=== PATIENT | female | born 1930 | race Caucasian/White ===

== ENCOUNTER 2016-10-07 13:48 | Emergency (ER) | payer MEDICARE, BC ==
--- NOTE | 2016-10-07 14:43 | RAD ---
Indication: Left ankle pain after fall 3 views of left ankle demonstrates no fracture. Soft tissue swelling is noted laterally. No other fractures are noted. IMPRESSION: Soft tissue swelling without fracture.
--- NOTE | 2016-10-07 14:54 | ED ---
Lower Extremity - HPI Summary HPI Summary: 86 female presents with complaints of left ankle swelling and bruising that occurred after a fall yesterday evening 10/06/16. Patient states she was in the hallway without her walker when her ankle twisted and she fell on her bottom. Patient denies hitting her head and LOC. Denies any other injuries or pain. Admits to some pain however is not currently in any pain. She took a tylenol last night and also took an oxycotton that she takes for other purposes with relief. She is able to bear weight and walk with minimal pain. She has full ROM. Denies numbness/tingling, chest pain and difficulty breathing. Points to the most discomfort on the lateral malleolous. - History of Current Complaint Chief Complaint: EDExtremityLower Stated Complaint: FALL / LT ANKLE INJURY Time Seen by Provider: 10/07/16 14:26 Hx Obtained From: Patient Mechanism Of Injury: Fall From A Standing Position, Twisted Onset of Pain: Hours Onset/Duration: Worse Since Severity Initially: Mild Severity Currently: Mild Pain Intensity: 5 Pain Scale Used: 0-10 Numeric Timing: Constant, Intermittent - with movement worsening pain Location: Is Discrete @ - left lateral ankle Character Of Pain: Aching Associated Signs And Symptoms: Positive: Swelling, Bruising. Negative: Knee Pain Aggravating Factor(s): Movement Alleviating Factor(s): Rest, Elevation, Ice Able to Bear Weight: Yes - Allergies/Home Medications Allergies/Adverse Reactions: Allergies Allergy/AdvReac Type Severity Reaction Status Date / Time No Known Drug Allergy Allergy Unknown Unknown Verified 03/17/16 18:07 Reaction Details PMH/Surg Hx/FS Hx/Imm Hx Endocrine/Hematology History: Reports: Hx Thyroid Disease - PARATHYROID SURGERY ABOUT 15 YRS AGO, Other Endocrine/Hematological Disorders - parathyroid surgery 15 years ago Denies: Hx Anticoagulant Therapy, Hx Diabetes Cardiovascular History: Reports: Hx Hypertension - ON MEDICATION FOR Denies: Hx Congestive Heart Failure, Hx Pacemaker/ICD Respiratory History: Reports: Hx Chronic Obstructive Pulmonary Disease (COPD), Hx Pneumonia, Other Respiratory Problems/Disorders - 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 Sensory History: Reports: Hx Cataracts, Hx Glaucoma - BILATERAL Denies: Hx Contacts or Glasses, Hx Eye Injury, Hx Eye Prosthesis, Hx Vision Problem, Hx Deafness, Hx Hearing Aid, Hx Hearing Problem Opthamlomology History: Reports: Hx Cataracts, Hx Glaucoma - BILATERAL Denies: Hx Contacts or Glasses, Hx Eye Injury, Hx Eye Prosthesis, Hx Vision Problem Neurological History: Reports: Other Neuro Impairments/Disorders - Childhood: POLIO, migraines Denies: Hx Dementia, Hx Developmental Delay, Hx Headaches, Hx Migraine, Hx Seizures, Hx Spinal Cord Injury, Hx Transient Ischemic Attacks (TIA) Psychiatric History: Reports: Hx Anxiety - ON MEDICATION FOR, Hx Depression - ON MEDICATION FOR Denies: Hx Substance Abuse - Cancer History Cancer Type, Location and Year: polio, osteoporosis Hx Chemotherapy: No Hx Radiation Therapy: No - Surgical History Surgery Procedure, Year, and Place: PARATHYROID- 21 YEARS. BREAST SURGERY- DIFFICULTY BREATHING- PLACED ON A VENTILATOR FOR A SHORT PERIOD- [facility]- 15 YEARS AGO. "kidney stone blasting-[facility] [place] Hx Anesthesia Reactions: Yes - PROBLEMS WITH BREATHING DURING SURGERY- 15 YEARS AGO Infectious Disease History: No Infectious Disease History: Reports: Hx Shingles Denies: Hx Clostridium Difficile, Hx Hepatitis, Hx Human Immunodeficiency Virus (HIV), Traveled Outside the in Last 30 Days - Family History Known Family History: Positive: Cardiac Disease, Hypertension - Social History Alcohol Use: Occasionally Alcohol Amount: glass of wine with dinner Substance Use Type: Reports: None Smoking Status (MU): Former Smoker Amount Used/How Often: 1 1/2 PPD X 20 YEARS Review of Systems Constitutional: Negative Cardiovascular: Negative Respiratory: Negative Gastrointestinal: Negative Positive: Arthralgia, Myalgia, Edema - left ankle Positive: Bruising Neurological: Negative Psychological: Normal All Other Systems Reviewed And Are Negative: Yes Physical Exam Triage Information Reviewed: Yes Vital Signs On Initial Exam: Initial Vitals Temp Pulse Resp BP Pulse Ox 97.1 F 94 18 134/60 96 10/07/16 13:52 10/07/16 13:52 10/07/16 13:52 10/07/16 13:52 10/07/16 13:52 Vital Signs Reviewed: Yes Appearance: Positive: Well-Appearing, No Pain Distress, Well-Nourished Skin: Positive: Warm, Skin Color Reflects Adequate Perfusion - < 2 second cap refill, Dry Head/Face: Positive: Normal Head/Face Inspection Eyes: Positive: Normal, EOMI, CHELITA, Conjunctiva Clear ENT: Positive: Normal ENT inspection, Hearing grossly normal Neck: Positive: Supple, Nontender Respiratory/Lung Sounds: Positive: Clear to Auscultation, Breath Sounds Present Cardiovascular: Positive: Normal, RRR, Pulses are Symmetrical in both Upper and Lower Extremities - 2+ Abdomen Description: Positive: Nontender, No Organomegaly Bowel Sounds: Positive: Present Musculoskeletal: Positive: Normal, Strength/ROM Intact - full ROM with minimal pain, Pain @ - minimal pain on palpation of lateral malleolous, ATFL. swelling and ecchymosis noted. no crepitus or step off noted., Edema Left - ankle, Other - negative valenzuela test, achilles tendon intact.. Negative: Limited @, Interruption @, Jarod Sign Left, Jarod Sign Right Neurological: Positive: Normal, Sensory/Motor Intact, Alert, Oriented to Person Place, Time, CN Intact II-III, Reflexes Intact, NV Bundle Intact Distally, Normal Gait - for patient's norm, with some favoring of right leg. uses walker, Speech Normal Psychiatric: Positive: Normal - [place] Coma Scale Best Eye Response: 4 - Spontaneous Best Motor Response: 6 - Obeys Commands Best Verbal Response: 5 - Oriented Coma Scale Total: 15 Diagnostics - Vital Signs Vital Signs Temp Pulse Resp BP Pulse Ox 10/07/16 13:52 97.1 F 94 18 134/60 96 - Laboratory Lab Statement: Any lab studies that have been ordered have been reviewed, and results considered in the medical decision making process. - Radiology left ankle Xray Interpretation: No Acute Changes - Soft tissue swelling without fracture. Radiology Interpretation Completed By: Radiologist Lower Extremity Course/Dx - Course Course Of Treatment: patient was not in any pain during vist and denied pain management at this time. x-ray obtained and negative. appeared to be sprained. wrapped with jennifer bandage, ice applied. patient will continue brace, REST and Aleve OTC. Informed that if symptoms worsen or are not improving to have an x- ray retaken when swelling decreases. Follow up with PCP or her Ortho pt Dr Vera - Diagnoses Differential Diagnosis/HQI/PQRI: Positive: Contusion, Dislocation, Fracture ( Closed), Sprain, Strain Provider Diagnoses: Sprain of left ankle Discharge - Discharge Plan Condition: Stable Disposition: HOME Patient Education Materials: Ankle Sprain (ED) Referrals: Og Powell MD [Primary Care Provider] - Additional Instructions: Take some OTC Aleve to help with pain and inflammation. 1-2 pills every 8 hours as needed. Be sure to keep resting your ankle, elevate it and ice it 20 minutes on and 20 minutes off to help with swelling. Keep jennifer bandage brace on for extra support. Try to refrain from walking on it as much as possible and use your walker while doing so. If your pain gets worse, swelling or are unable to bear weight/walk on it please return and get an additional x-ray in the next couple of days. Sometimes it takes a fracture a couple of days to show up, if symptoms are worsening rather than getting better like we discussed. Follow up with your primary care provider to ensure proper healing of your ankle sprain.
[2016-10-07 15:54] VITALS: BP 133/56
== END 2016-10-07 15:54 | disposition home or self-care (01) ==
LOC: ED 13:48
DX: S93.402A Sprain of unspecified ligament of left ankle, initial encounter (principal); Z87.891 Personal history of nicotine dependence; I10 Essential (primary) hypertension; J44.9 Chronic obstructive pulmonary disease, unspecified; F41.9 Anxiety disorder, unspecified; F32.9 Major depressive disorder, single episode, unspecified; X50.1XXA Overexertion from prolonged static or awkward postures, initial encounter; Y92.9 Unspecified place or not applicable; W19.XXXA Unspecified fall, initial encounter
CPT/HCPCS: 99281

== ENCOUNTER 2016-10-11 16:07 | Emergency (ER) | payer MEDICARE, BC ==
--- NOTE | 2016-10-11 17:05 | UC ---
Lower Extremity/Ankle HPI - HPI Summary HPI Summary: Pt presents with continued left ankle pain. Pt reports that she fell on and went to [facility] ED for left ankle pain. Pt had left ankle xray and impression was negative for fracture. Pt's c/o mild edema lateral malleolous.swelling, tenderness and ecchymosis. - History of Current Complaint Chief Complaint: UCLowerExtremity Stated Complaint: ANKLE INJURY Time Seen by Provider: 10/11/16 16:51 Hx Obtained From: Patient ?: No Onset/Duration: Sudden Onset, Lasting Days Severity Initially: Moderate Severity Currently: Mild Aggravating Factor(s): Standing, Ambulation - pt uses a walker for ambulation Alleviating Factor(s): Rest, Elevation Able to Bear Weight: Yes - Risk Factors Gout Risk Factors: Age Over 40 DVT Risk Factors: Recent Trauma - fall on October 06 Septic Arthritis Risk Factor: Extremes of Age - Allergies/Home Medications Allergies/Adverse Reactions: Allergies Allergy/AdvReac Type Severity Reaction Status Date / Time No Known Drug Allergy Allergy Unknown Unknown Verified 03/17/16 18:07 Reaction Details Home Medications: Home Medications Naproxen Sodium 220 mg PO 10/11/16 [History] PMH/Surg Hx/FS Hx/Imm Hx Previously Healthy: No - see PMH Endocrine History Of: Reports: Thyroid Disease - PARATHYROID SURGERY ABOUT 15 YRS AGO Denies: Diabetes Cardiovascular History Of: Reports: Hypertension - ON MEDICATION FOR Denies: Cardiac Disorders, Pacemaker/ICD, Congestive Heart Failure Respiratory History Of: Reports: COPD, Pneumonia Denies: Asthma GI/ History Of: Reports: Kidney Stones - HX BOTH SIDES AND CURRENT RT SIDE, Renal Disease - kidney stones Denies: Gastroesophageal Reflux Neurological History Of: Denies: TIA, CVA, Dementia, Seizures, Migraine Psychological History Of: Reports: Anxiety - ON MEDICATION FOR, Depression - ON MEDICATION FOR Cancer History Of: Denies: Breast Cancer Other History Of: Negative For: Anticoagulant Therapy - Surgical History Surgical History: Yes Surgery Procedure, Year, and Place: PARATHYROID- 20 YEARS. BREAST SURGERY- DIFFICULTY BREATHING- PLACED ON A VENTILATOR FOR A SHORT PERIOD- [facility]- 15 YEARS AGO. "kidney stone blasting-[facility] - Family History Known Family History: Positive: Cardiac Disease, Hypertension - Social History Alcohol Use: Occasionally Alcohol Amount: glass of wine with dinner Substance Use Type: None Smoking Status (MU): Former Smoker Amount Used/How Often: 1 1/2 PPD X 20 YEARS When Did the Patient Quit Smoking/Using Tobacco: 20 YEARS AGO - Immunization History Most Recent Influenza Vaccination: Fall 2013 Most Recent Tetanus Shot: unknown Most Recent Pneumonia Vaccination: unknown Review of Systems Constitutional: Negative Skin: Bruising - left ankle Eyes: Negative ENT: Negative Respiratory: Negative Cardiovascular: Negative Gastrointestinal: Negative Genitourinary: Negative Motor: Decreased ROM - left ankle Neurovascular: Negative Musculoskeletal: Arthralgia, Edema - left ankle generalized,, Myalgia Neurological: Negative Psychological: Negative All Other Systems Reviewed And Are Negative: Yes Physical Exam Triage Information Reviewed: Yes Appearance: Well-Appearing Vital Signs: Initial Vital Signs Temp 98.7 F 10/11/16 16:45 Pulse 87 10/11/16 16:45 Resp 18 10/11/16 16:45 Pulse Ox 95 10/11/16 16:45 Vital Signs Reviewed: Yes Eye Exam: Normal Respiratory: Positive: No respiratory distress Musculoskeletal Exam: Other Musculoskeletal: Positive: ROM Limited @ - left ankle secondary to tenderness, Edema @ - left ankle generalized, ecchymosis left nery generalized Neurological Exam: Normal Psychological Exam: Normal Skin Exam: Other - eccyhmosis left ankle generalized Lower Extremity Course/Dx - Course Course Of Treatment: Xray impression: IMPRESSION: Soft tissue swelling is improved. Increased sclerosis at the talar dome is. noted which is unchanged. The talar dome is intact however the possibility of avascular. necrosis should be considered. - Differential Dx/Diagnosis Differential Diagnosis/HQI/PQRI: Fracture (Closed), Sprain, Strain Provider Diagnoses: left ankle sprain. I discussed the findings of her xray and instructed the pt to follow up with an orthopedic provider. Pt verbalized understanding but denied referral. Discharge - Discharge Plan Condition: Stable Disposition: HOME Patient Education Materials: Ankle Sprain (ED) Referrals: Rigo Quintana MD [Medical Doctor] - Og Powell MD [Primary Care Provider] - If Needed Additional Instructions: Please follow up with our PCP or return to clinic as needed. I have provided a referral to an orthopedic provider for you to follow up with regard to todays xray findings. IMPRESSION: Soft tissue swelling is improved. Increased sclerosis at the talar dome is noted which is unchanged. The talar dome is intact however the possibility of avascular necrosis should be considered.
--- NOTE | 2016-10-11 17:34 | RAD ---
Indication: Left ankle pain. 3 views of left ankle demonstrate soft tissue swelling. No fracture is identified. Diffuse osteopenia is noted. When compared to previous exam of October 07, 2016 soft tissue swelling appears to be improved slightly. There is increased sclerosis at the talar dome. Avascular necrosis of the talus is not excluded. IMPRESSION: Soft tissue swelling is improved. Increased sclerosis at the talar dome is noted which is unchanged. The talar dome is intact however the possibility of avascular necrosis should be considered.
== END 2016-10-11 17:50 | disposition home or self-care (01) ==
LOC: UCEAST 16:07
DX: S93.402A Sprain of unspecified ligament of left ankle, initial encounter (principal); W19.XXXA Unspecified fall, initial encounter; Y93.9 Activity, unspecified; Y92.9 Unspecified place or not applicable; I10 Essential (primary) hypertension; Z87.891 Personal history of nicotine dependence
CPT/HCPCS: 99212; G0463

== ENCOUNTER 2016-10-14 10:36 | Emergency (ER) | payer MEDICARE, BC ==
--- NOTE | 2016-10-14 12:18 | RAD ---
HISTORY: Left leg pain and bruising COMPARISONS: None VIEWS: 2, Frontal and lateral views of the left foreleg FINDINGS: BONE DENSITY: There is diffuse osteopenia. BONES: There is no displaced fracture. JOINTS: There is osteoarthritis of the knee and ankle ALIGNMENT: There is no dislocation. SOFT TISSUES: Unremarkable. OTHER FINDINGS: None. IMPRESSION: NO ACUTE OSSEOUS INJURY. THE DEGREE OF OSTEOPENIA MAY MAKE A NONDISPLACED FRACTURE RADIOGRAPHICALLY OCCULT. IF SYMPTOMS PERSIST, RECOMMEND REPEAT IMAGING.
[2016-10-14 13:12] VITALS: BP 182/85
--- NOTE | 2016-10-14 13:31 | UC ---
Lower Extremity/Ankle HPI - HPI Summary HPI Summary: LEFT ANKLE TWISTED ON 10/07/16 XRAY AT EMERGENCY DEPT SHOWED NO ANKLE FRACTURE. ANKLE AND FOOT CONTINUED TO BOTHER PATIENT, SEEN AT URGENT CARE, XRAY SHOWED NO FRACTURE BUT COMMENTED ON POSSIBILITY OF AVASCULAR NECROSIS OF TALAR DOME. PEDRO PABLO COMES TODAY DUE TO BRUISING OF LEFT LOWER LEG. (HAS BEEN RESTING WITH FEET UP FOR EXTEDED PERIOD OF TIME RECENTLY) . LOWER LEG NONTENDER. - History of Current Complaint Chief Complaint: UCLowerExtremity Stated Complaint: LEG BLACK AND BLUE Time Seen by Provider: 10/14/16 11:42 Hx Obtained From: Patient, Family/[employer] Worker Onset/Duration: Gradual Onset, Lasting Weeks, Still Present, Worse Since - LAST 3 DAYS, LATERAL LEG ECCYMOSES Severity Currently: Mild Aggravating Factor(s): Standing, Ambulation Alleviating Factor(s): Rest Able to Bear Weight: Yes - Risk Factors Septic Arthritis Risk Factor: Negative - Allergies/Home Medications Allergies/Adverse Reactions: Allergies Allergy/AdvReac Type Severity Reaction Status Date / Time No Known Drug Allergy Allergy Unknown Unknown Verified 10/14/16 11:35 Reaction Details PMH/Surg Hx/FS Hx/Imm Hx Previously Healthy: Yes Endocrine History Of: Reports: Thyroid Disease - PARATHYROID SURGERY ABOUT 15 YRS AGO Denies: Diabetes Cardiovascular History Of: Reports: Hypertension - ON MEDICATION FOR Denies: Cardiac Disorders, Pacemaker/ICD, Congestive Heart Failure Respiratory History Of: Reports: COPD, Pneumonia Denies: Asthma GI/ History Of: Reports: Kidney Stones - HX BOTH SIDES AND CURRENT RT SIDE, Renal Disease - kidney stones Denies: Gastroesophageal Reflux Neurological History Of: Denies: TIA, CVA, Dementia, Seizures, Migraine Psychological History Of: Reports: Anxiety - ON MEDICATION FOR, Depression - ON MEDICATION FOR Cancer History Of: Denies: Breast Cancer Other History Of: Negative For: Anticoagulant Therapy - Surgical History Surgical History: Yes Surgery Procedure, Year, and Place: PARATHYROID- 20 YEARS. BREAST SURGERY- DIFFICULTY BREATHING- PLACED ON A VENTILATOR FOR A SHORT PERIOD- [facility]- 15 YEARS AGO. "kidney stone blasting-[facility] - Family History Known Family History: Positive: Cardiac Disease, Hypertension - Social History Occupation: Retired Lives: With Family Alcohol Use: Occasionally Alcohol Amount: glass of wine with dinner Substance Use Type: None Smoking Status (MU): Former Smoker Amount Used/How Often: 1 1/2 PPD X 20 YEARS When Did the Patient Quit Smoking/Using Tobacco: 20 YEARS AGO - Immunization History Most Recent Influenza Vaccination: Fall 2013 Most Recent Tetanus Shot: unknown Most Recent Pneumonia Vaccination: unknown Review of Systems Constitutional: Negative Skin: Bruising - LEFT LOWER LEG ANKLE AND FOOT Eyes: Negative ENT: Negative Respiratory: Negative Cardiovascular: Negative Gastrointestinal: Negative Genitourinary: Negative Musculoskeletal: Arthralgia, Myalgia Neurological: Negative Psychological: Negative All Other Systems Reviewed And Are Negative: Yes Physical Exam Triage Information Reviewed: Yes Appearance: Well-Appearing, No Pain Distress, Well-Nourished, Thin Vital Signs: Initial Vital Signs Temp 98.8 F 10/14/16 11:30 Pulse 90 10/14/16 11:30 Resp 18 10/14/16 11:30 BP 196/93 10/14/16 11:30 Pulse Ox 98 10/14/16 11:30 Vital Signs Reviewed: Yes Eye Exam: Normal ENT Exam: Normal ENT: Positive: Normal ENT inspection, Hearing grossly normal, TMs normal Dental Exam: Normal Neck exam: Normal Neck: Positive: Supple, Nontender Respiratory Exam: Normal Respiratory: Positive: Chest non-tender, Lungs clear, Normal breath sounds, No respiratory distress, No accessory muscle use Cardiovascular Exam: Normal Cardiovascular: Positive: RRR, No Murmur Abdominal Exam: Normal Musculoskeletal Exam: Normal Musculoskeletal: Positive: Strength Limited @, ROM Limited @ Neurological Exam: Normal Neurological: Positive: Alert Psychological Exam: Normal Psychological: Positive: Normal Response To Family Skin: Positive: Other - ECCYMOSES LEFT LOWER LEG NONTENDER TO PALPATION Lower Extremity Course/Dx - Differential Dx/Diagnosis Differential Diagnosis/HQI/PQRI: Contusion, Fracture (Closed), Sprain, Strain Provider Diagnoses: LEFT LOWER LEG OSTEOPENIA/OSTEOPEROSIS;. LEFT ANKLE SPRAIN; . POSSIBLE OCCULT FRACTURE/POSSIBLE TALAR DOME AVASCULAR NECROSIS - Physician Notifications Instructed by Provider To: Have Pt Call For Appt. Discharge - Discharge Plan Condition: Stable Disposition: HOME Patient Education Materials: Ankle Sprain (ED), Osteoarthritis (ED), Hypertension (ED), SUSPECTED FRACTURE (ED), Osteopenia (GEN) Referrals: Lm Miguel MD [Medical Doctor] - Og Powell MD [Primary Care Provider] -
== END 2016-10-14 13:15 | disposition home or self-care (01) ==
LOC: UCEAST 10:36
DX: M81.0 Age-related osteoporosis without current pathological fracture (principal); S93.402A Sprain of unspecified ligament of left ankle, initial encounter; X58.XXXA Exposure to other specified factors, initial encounter; Y93.9 Activity, unspecified; Y99.9 Unspecified external cause status
CPT/HCPCS: 99213; G0463

== ENCOUNTER 2018-05-01 21:02 | Emergency (ER) | payer MEDICARE, OTHER ==
--- OUTSIDE RECORDS SUMMARY | 2018-05-01 21:09 | XMS REPORT | Continuity of Care Document ---
:1930 External Reference #:[id number] Author Name Raymond Cyr M.D. Address [address] [place] [address] Care Team Providers Name Role Phone Og Powell M.D. 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 Active Onset: 01/20/2015 Primary open angle glaucoma Raymond Cyr M.D. Active Onset: 01/20/2015 Moderate Glaucoma Raymond Cyr M.D. Active Onset: 02/12/2015 Blepharitis Merlyn Carmen, Active O.D. Onset: 02/12/2015 Severe / Advanced / End Stage Merlyn Carmen, Active Glaucoma O.D. Onset: 2015 Pseudophakia Raymond Cyr M.D. Active Onset: 10/07/2015 Internal hordeolum Fide Murry O.D. Active Onset: 10/07/2015 Senile ectropion Fide Murry O.D. Active Onset: 11/11/2015 Allergic contact dermatitis due to Merlyn Carmen, Active other agents O.D. Onset: 12/14/2015 Angular blepharoconjunctivitis Merlyn Carmen Active O.DZachary Onset: 11/08/2016 Bilateral primary open angle glaucoma Raymond Cyr M.D. Active Onset: 08/07/2017 Eczematous dermatitis of eyelid Raymond Cyr M.D. Active Onset: 01/08/2018 Tear film insufficiency Eric Blancas OOrtiz Family History Date Family Member(s) Problem(s) Comments General No Current Problems Father No Current Problems Mother No Current Problems Social History Type Date Description Comments Sex Unknown Marital Status Single Occupation [employer] - Retired ETOH Use Consumes 1-2 glasses of wine per day Tobacco Use Start: Unknown End: Patient is a former smoker Unknown Recreational Drug Use Denies Drug Use Smoking Status Reviewed: 04/16/18 Patient is a former smoker Allergies, Adverse Reactions, Alerts Date Description Reaction Status Severity Comments 10/13/2014 Travatan Z Active 10/13/2014 Beta Adrenergic Blockers Active 02/12/2015 Alphagan P Active 02/12/2015 Azopt Active Medications Medication Date Status Form Strength Qnty SIG Indications Ordering Provider Erythromycin 04/11/ Active Ointment 5mg/GM 1Tube apply H10.523 Merlyn Faulkner 2018 thin Kermit, strip to O.D. all four eyelid margins x every night Artificial 02/09/ Active Solution 1-0.3% 4 times Merlyn Faulkner Tears 2018 daily Sariah Carmen Brimonidine 09/19/ Active Solution 0.2% 10unit Instill Raymond Faulkner Tartrate 2018 s One Drop Arleo, In Both M.D. Eyes Two Times A Day Preservision 10/12/ Active Capsules Areds 2 1 cap by Raymond Faulkner Arejeanne 2 2014 mouth Arleo, twice a M.D. day Potassium 00// Active Tablets ER 10Meq daily Unknown Citrate ER 0000 (1080 mg) Lorazepam / Active Tablets 0.5mg daily Unknown 0000 Oxycontin 00/ Active Tab ER 12H 10mg as Unknown 0000 Abuse-Det needed Bupropion HCL / Active Tablets ER 150mg daily Unknown ER (XL) 0000 24HR Prolia / Active Solution 60mg/ml daily Unknown 0000 Norvasc 0000/ Active Tablets 10mg 1 tab po Unknown 0000 daily Multi For Her 00/ Active Tablets daily Unknown 50+ 0000 Aleve / Active Tablets 220mg as Unknown 0000 needed Warm Compresses / Active twice Unknown 0000 daily Erythromycin 02/23/ Hx Ointment 5mg/GM 1Tube apply H10.523 Merlyn Faulkner 2018 - geovani Carmen, 04/11/ strip to O.D. 2018 all four eyelid margins x every night Neomycin/Polymy 02/09/ Hx Ointment 3.5-62848- 3.500g apply to H10.523 Merlyn britton/Dexamethaso 2018 - 0.1 m all lids eKrmit ne 04/11/ at O.D. 2018 bedtime for 2 weeks Erythromycin 10/21/ Hx Ointment 5mg/GM 1Tubes apply H10.523 Fide Banerjee 2018 - geovani Murry, 12/27/ strip to O.D. 2018 all four eyelid margins twice a day both eyes for 1 week, then once a day as needed Tobrex 10/09/ Hx Ointment 0.3% 3.500g apply to H01.131 Raymond Faulkner 2018 - m all lids Arleo, 10/18/ at M.D. 2018 bedtime for 1 week then stop, as needed. Tobradex 08/14/ Hx Ointment 0.3-0.1% 3.500g apply to Raymond Faulkner 2018 - m all lids Arleo, 10/18/ at M.D. 2018 bedtime for 1 week Erythromycin 04/14/ Hx Ointment 5mg/GM 1Tube apply H10.523 Merlyn Faulkner 2017 - geovani Carmen, 06/05/ strip to O.D. 2016 all four eyelid margins every night Refresh P.M. 01/20/ Hx Ointment 3.500g every Fide Banerjee 2016 - m night at Jeanmarie, 04/13/ bedtime O.D. 2017 both eyes Brimonidine 12/12/ Hx Solution 0.2% 10unit instill Raymond Faulkner Tarcamron 2016 - s 1 drop Arleo, 08/07/ in both M.D. 2018 eyes twice daily Tobradex 11/10/ Hx Ointment 0.3-0.1% 3.500g apply to L23.89 Merlyn Faulkner 2016 - m all lids Stockwin, 12/12/ 1xday O.D. 2016 for 5 days, then stop. Erythromycin 10/06/ Hx Ointment 5mg/GM 1Tube apply to H01.001 Fide Banerjee 2016 - all four [place], 11/18/ lids at O.D. 2016 bedtime for 3 weeks Ocusoft Lid 09/26/ Hx Pads twice a Raymond Faulkner Scrub Plus 2016 - day Arleo, 11/09/ M.D. 2016 Erythromycin 09/07/ Hx Ointment 5mg/GM 1Tube Apply to H01.001 Fide Banerjee 2016 - all four [place], 09/27/ lids at O.D. 2016 bedtime for 3 weeks Brimonidine 07/30/ Hx Solution 0.2% 45ml 1 drop H40.11x3 Raymond Tate 2016 - both Arleo, 11/18/ eyes M.D. 2015 twice a day Erythromycin 02/12/ Hx Ointment 5mg/GM 1Tube apply 373.00 Merlyn Faulkner 2014 - thin Stockwin, 04/27/ strip to O.D. 2014 all four eyelid margins x every night Vigamox 10/13/ Hx Solution 0.5% 3ml one drop Raymond Faulkner 2014 - right Arleo, 01/19/ eye M.D. 2014 three times a day , start the day before surgery Alphagan P 10/12/ Hx Solution 0.1% 10ml One drop Raymond Faulkner 2014 - Both Arleo, 01/26/ eyes M.D. 2014 twice daily Azopt 10/12/ Hx Suspension 1% 15ml One drop Raymond Faulkner 2014 - Both Arleo, 02/05/ eyes M.D. 2014 twice daily Sensipar 00/ Hx Tablets 30mg Unknown 0000 - 2014 Advair Diskus / Hx Aerosol 250-50mcg/ Unknown 0000 - Dose 2014 Spiriva / Hx Capsules 18mcg Unknown Handihaler 0000 - 2014 Albuterol / Hx Nebulizer (2.5mg/3ML Unknown Sulfate 0000 - ) 0.083% 2014 Prednisone / Hx Tablets 10mg Unknown 0000 - 2016 Tylenol Extra / Hx Tablets 500mg 2 by Unknown Strength 0000 - mouth as 2016 Acetaminophen / Hx Tablets 500mg Unknown 0000 - 2016 Warm Compresses / Hx as Unknown 0000 - needed 2017 Ocusoft Lid Hx Liquid as Raymond Faulkner Scrcatrachito Original 0000 - needed Ger 10/18/ Sofia 2017 Medications Administered in Office Medication Date Status Form Strength Qnty SIG Indications Ordering Provider Avastin Administered Injection Raymond Cyr M.D. Avastin Administered Injection Raymond Cyr M.D. Avastin Administered Injection Raymond Cyr M.D. Avastin Administered Injection Raymond Cyr M.D. Avastin Administered Injection Raymond Cyr M.D. Avastin Administered Injection Raymond Cyr M.D. Avastin Administered Injection Raymond Cyr M.D. Avastin Administered Injection Raymond Cyr M.D. Avastin Administered Injection Raymond Cyr M.D. Avastin Administered Injection Raymond Cyr M.D. Avastin Administered Injection Raymond Cyr M.D. Immunizations Description No Information Available Vital Signs Date Vital Result Comment 04/12/2018 12:17pm BP Systolic 174 mmHg BP Diastolic 83 mmHg Heart Rate 81 /min 11/09/2015 2:34pm BP Systolic 121 mmHg BP Diastolic 63 mmHg Heart Rate 92 /min Respiratory Rate 16 /min 09/28/2015 1:02pm BP Systolic 110 mmHg BP Diastolic 64 mmHg Heart Rate 92 /min Respiratory Rate 16 /min Results Description No Information Available Procedures Date Code Description Status 04/12/2018 98586 Scanning Computerized Opthalmic Diagnostic Posterior Seg Completed Retina 04/12/2018 40642 Est Patient Comprehensive Exam Completed 02/09/2018 07551 Est Patient Intermediate Exam Completed 01/08/2018 62541 Scanning Computerized Opthalmic Diagnostic Posterior Seg Completed Retina 01/08/2018 25540 Est Patient Comprehensive Exam Completed 10/09/2017 66710 Est Patient Intermediate Exam Completed 06/12/2017 03512 Est Patient Intermediate Exam Completed 02/06/2017 65958 Est Patient Intermediate Exam Completed 11/08/2016 19571 Est Patient Comprehensive Exam Completed 11/08/2016 28917 Visual Field Exam Extended Completed 11/08/2016 73896 Scanning Computerized Ophthalmic Diagnostic Imag Posterior Completed Seg On 06/24/2016 93579 Est Patient Intermediate Exam Completed 12/14/2015 11610 Est Patient Intermediate Exam Completed 11/20/2015 59241 Scanning Computerized Opthalmic Diagnostic Posterior Seg Completed Retina 11/20/2015 25779 Est Patient Comprehensive Exam Completed 11/09/2015 23181 Injection Intravitreal Of A Pharmacologic Agent Completed 09/28/2015 33453 Injection Intravitreal Of A Pharmacologic Agent Completed 08/10/2015 58484 Injection Intravitreal Of A Pharmacologic Agent Completed 07/30/2015 87084 Est Patient Comprehensive Exam Completed 07/30/2015 44696 Visual Field Exam Extended Completed 07/30/2015 91752 Scanning Computerized Ophthalmic Diagnostic Imag Posterior Completed Seg On 04/28/2015 20644 Scanning Computerized Opthalmic Diagnostic Posterior Seg Completed Retina 04/28/2015 41011 Est Patient Intermediate Exam Completed 2015 70246 Est Patient Intermediate Exam Completed 02/12/2015 60070 Est Patient Intermediate Exam Completed 02/02/2015 80666 Remove Secondary Cataract, Laser (Yag) Completed 01/20/2015 05809 Scanning Computerized Opthalmic Diagnostic Posterior Seg Completed Retina 01/20/2015 73575 Est Patient Comprehensive Exam Completed 01/12/2015 85503 Injection Intravitreal Of A Pharmacologic Agent Completed 12/08/2014 81888 Injection Intravitreal Of A Pharmacologic Agent Completed 11/03/2014 53031 Injection Intravitreal Of A Pharmacologic Agent Completed 10/13/2014 13729 Scanning Computerized Opthalmic Diagnostic Posterior Seg Completed Retina 10/13/2014 22236 Est Patient Intermediate Exam Completed 08/15/2014 81015 Scanning Computerized Opthalmic Diagnostic Posterior Seg Completed Retina 08/15/2014 15349 Est Patient Intermediate Exam Completed 08/04/2014 73196 Injection Intravitreal Of A Pharmacologic Agent Completed 08/01/2014 88131 Scanning Computerized Opthalmic Diagnostic Posterior Seg Completed Retina 08/01/2014 04309 Est Patient Comprehensive Exam Completed 05/05/2014 61722 Visual Field Exam Extended Completed 05/05/2014 49812 Injection Intravitreal Of A Pharmacologic Agent Completed 03/14/2014 85398 Est Patient Comprehensive Exam Completed 03/14/2014 84422 Scanning Computerized Opthalmic Diagnostic Posterior Seg Completed Retina 03/03/2014 26257 Injection Intravitreal Of A Pharmacologic Agent Completed 02/03/2014 00131 Injection Intravitreal Of A Pharmacologic Agent Completed 01/13/2014 87497 Injection Intravitreal Of A Pharmacologic Agent Completed 12/24/2013 67148 Scanning Computerized Opthalmic Diagnostic Posterior Seg Completed Retina 12/24/2013 72721 Determination Of Refractive State Completed 12/24/2013 61311 Est Patient Comprehensive Exam Completed 06/25/2013 63966 Est Patient Intermediate Exam Completed 05/14/2013 66797 Trabeculoplasty By Laser Surgery Completed 04/26/2013 62226 Est Patient Intermediate Exam Completed 04/26/2013 29715 Visual Field Exam Extended Completed 04/26/2013 76700 Scanning Computerized Ophthalmic Diagnostic Imag Posterior Completed Seg On 01/31/2013 15126 Est Patient Comprehensive Exam Completed 10/18/2012 89937 Est Patient Intermediate Exam Completed 07/10/2012 37212 Est Patient Intermediate Exam Completed 07/10/2012 516 Cod Liver Oil Tablets Completed 06/19/2012 91865 Remove Secondary Cataract, Laser (Yag) Completed 06/18/2012 49055 Est Patient Intermediate Exam Completed 05/28/2012 74878 Est Patient Intermediate Exam Completed 05/28/2012 516 Cod Liver Oil Tablets Completed 05/11/2012 16845 Visual Field Exam Extended Completed 09/30/2011 83581 Est Patient Intermediate Exam Completed 09/15/2011 72686 Trabeculoplasty By Laser Surgery Completed 09/08/2011 51492 Trabeculoplasty By Laser Surgery Completed 07/11/2011 58132 Visual Field Exam Extended Completed 07/11/2011 35819 Determination Of Refractive State Completed 07/11/2011 21372 Est Patient Comprehensive Exam Completed 03/21/2011 20308 Est Patient Intermediate Exam Completed 01/11/2011 02945 Scanning Computerized Ophthalmic Diagnostic Imag Posterior Completed Seg On 01/11/2011 78435 Est Patient Intermediate Exam Completed 08/27/2010 67236 Pachymetry Completed 08/27/2010 30750 Est Patient Intermediate Exam Completed 08/27/2010 10498 Visual Field Exam Extended Completed 08/27/2010 93367 Fundus Photography With Interpretation And Report Completed 02/10/2010 46468 Extracapsular Cataract Extraction W/Intraocular Lens Completed 02/03/2010 04254 Extracapsular Cataract Extraction W/Intraocular Lens Completed 01/14/2010 44774 Ophthalmic Biometry Completed 01/14/2010 75975 Ophthalmic Biometry Completed 01/14/2010 20407 Scanning Laser W/Interp And Report Completed 12/29/2009 92894 New Patient Comprehensive Exam Completed Encounters Type Date Location Provider Dx Diagnosis Office Visit 02/23/2018 Merlyn Williamson H10.523 Angular 10:30a , jeffrey Carmen O.D. blepharoconjunctiv itis, bilateral Office Visit 10/21/2017 Fide Williamson, H10.523 Angular 9:45a jeffrey GUSTAFSON O.D. blepharoconjunctiv itis, bilateral Office Visit 08/07/2017 Raymond Williamson, H01.131 Eczematous 12:45p jeffrey GUSTAFSON M.D. dermatitis of right upper eyelid H01.134 Eczematous dermatitis of left upper eyelid Office 04/14/2017 Raymond Faulkner H10.523 Angular Visit 11:10a MD Cyr Stockwin blepharoconjunctivitis, jeffrey Rolle bilateral Office 01/22/2016 Raymond Banerjee H35.32 Exudative age-related Visit 11:00a MD Cyr Conroy, O.D. macular degeneration pc H40.11x3 Primary open-angle glaucoma, severe stage H10.523 Angular blepharoconjunctivitis, bilateral Office Visit 11/11/2015 1:20p Raymond Faulkner L23.89 Allergic contact MD Ger, jeffrey Carmen O.D. dermatitis due to other agents Office Visit 10/07/2015 10:15a Raymond Murry, H01.001 Unspecified MD Ger, jeffrey O.DZachary blepharitis right upper eyelid H01.004 Unspecified blepharitis left upper eyelid H00.021 Hordeolum internum right upper eyelid H00.024 Hordeolum internum left upper eyelid H02.132 Senile ectropion of right lower eyelid Office Visit 09/07/2015 2:45p Raymond Banerjee H01.001 Unspecified MD Ger, Sariah Murry blepharitis right upper eyelid H01.004 Unspecified blepharitis left upper eyelid H35.32 Exudative age-related macular degeneration H40.11x3 Primary open-angle glaucoma, severe stage Office Visit 04/08/2013 10:00a Al Williamson, 365.12 Low Tension jeffrey GUSTAFSON M.D. Glaucoma 365.72 Moderate Glaucoma Office Visit 11/28/2011 11:00a Raymond Williamson 365.11 Primary Open jeffrey GUSTAFSON M.D. Angle Glaucoma 365.73 Severe / Advanced / End Stage Glaucoma Office Visit 10/17/2011 10:00a Raymond Williamson 365.11 Primary Open jeffrey GUSTAFSON M.D. Angle Glaucoma 365.73 Severe / Advanced / End Stage Glaucoma Office 05/02/2011 Raymond Faulkner 372.30 Conjunctivitis Unspec Visit 11:30a MD Ger, Sariah Carmen pc Office 04/15/2011 Raymond Faulkner 372.20 Blepharoconjunctivitis Visit 11:10a MD Cyr Stockwin, O.D. Unspec pc Office 10/11/2010 Raymond Faulkner 365.11 Primary Open Angle Glaucoma Visit 11:15a MD Cyr Arleo, M.D. pc Office 01/14/2010 Raymond Faulkner 366.16 Senile Nuclear Sclerosis / Visit 9:15a MD Cyr Arleo, M.D. Cataract Plan of Treatment 04/16/2018 - Raymond Cyr M.D.H40.1133 Primary open-angle glaucoma, bilateral, severe stageComments:Smoking can increase the risk of developing or worsening any eye related disease, as well as affect your overall health. If you are a smoker, we strongly recommend that you quit.If you are not a smoker, we strongly recommend that you do not start. Your glaucoma is stable at this time.Your eye pressure is within an acceptable range, and your testing does not show any further deterioration at this time. Please continue your treatment.Follow up:3 Month Follow Up IOP Check At your next visit, we are not planning to dilate your eyes. However, if you have any changes in your vision or new symptoms, there are certain situations that require us to dilate your eyes. If Dr. Cyr requests any additional testing, that may require extra time. If you have any questions before your next appointment, please call our office at .H35.3212 Exudative age-related macular degeneration, right eye, withComments:Dr. Cyr would like to refer you for a second opinion to a Retinal Specialist in [place]. The name of the group is [facility]. Shadi or Yanet will arrange your appointment with their office and will fax any necessary information to them. They will provide you withthe name of the doctor you are seeing, appointment time, and directions. If you have any questions feel free to call our office at .Follow up:Refer to S for second [id number] Nonexudative age- related macular degeneration, left eye, earH10.523 Angular blepharoconjunctivitis, bilateral
--- OUTSIDE RECORDS SUMMARY | 2018-05-01 21:09 | XMS REPORT | Continuity of Care Document ---
:1930 External Reference #:[id number] Author Name Merlyn Carmen O.D. Address [address] [facility] [place] [address] Care Team Providers Name Role Phone Og Powell M.D. Primary Care Physician Unavailable Payers Type Date Identification Numbers Payment Provider Subscriber Effective: Policy Number: [id number] Medicare - NGS Ashli Vaca 1995 Onset: 2010 PayID: [id number] [address] [place] [address] Policy Number: [id number] [employer] Ashli Vaca PayID: [id number] [address] [place] [address] Advance Directives Description No Information Available Problems [...] Raymond Cyr M.D. Active Onset: 02/12/2015 Blepharitis Eric Blancas.You Onset: 02/12/2015 Severe / Advanced / End Stage Eric Blancas Glaucoma O.DZachary Onset: 2015 Pseudophakia Raymond Cyr M.D. Active Onset: 10/07/2015 Internal hordeolum Fide Murry O.D. Active Onset: 10/07/2015 Senile ectropion Fide Murry O.D. Active Onset: 11/11/2015 Allergic contact dermatitis due to Merlyn Carmen, Active other agents O.D. Onset: 12/14/2015 Angular blepharoconjunctivitis Merlyn Carmen Active O.DZachary Onset: 11/08/2016 Bilateral primary open angle glaucoma Raymond Cyr M.D. Active Onset: 08/07/2017 Eczematous dermatitis of eyelid Raymnod Cyr M.D. Active Onset: 01/08/2018 Tear film insufficiency Eric Blancas OOrtiz Family History Date Family Member(s) Problem(s) Comments General No Current Problems Father No Current Problems Mother No Current Problems Social History Type Date Description Comments Sex Unknown Marital Status Single Occupation [employer] - Retired ETOH Use Consumes 1-2 glasses of wine per day Tobacco Use Start: Unknown End: Patient is a former smoker Unknown Recreational Drug Use Denies Drug Use Smoking Status Reviewed: 04/12/18 Patient is a former smoker Allergies, Adverse [...] x every night Neomycin/Polymy 02/09/ Hx Ointment [id number]- 3.500g apply to H10.523 Merlyn britton/Dexamethaso 2018 - 0.1 m all lids Kermit ne 04/11/ at O.D. 2018 bedtime for [...] Fide Banerjee 2016 - m night at [place], 04/13/ bedtime O.D. 2017 both eyes Brimonidine [...] H01.001 Fide Banerjee 2016 - all four [place], 11/18/ lids at O.D. 2016 bedtime for 3 weeks Ocusoft Lid 09/26/ Hx Pads twice a Raymond Faulkner Scrub Plus 2016 - day Ar[place], 11/09/ M.D. 2016 Erythromycin 09/07/ Hx Ointment 5mg/GM 1Tube Apply to H01.001 Fide Banerjee 2016 - all four [place], 09/27/ lids at O.D. 2016 bedtime for [...] Information Available Procedures Date Code Description Status 02/09/2018 53008 Est Patient Intermediate Exam Completed 01/08/2018 08571 Scanning Computerized Opthalmic Diagnostic Posterior Seg Completed Retina 01/08/2018 67298 Est Patient Comprehensive Exam Completed 10/09/2017 23461 Est Patient Intermediate Exam Completed 06/12/2017 41440 Est Patient Intermediate Exam Completed 02/06/2017 71842 Est Patient Intermediate Exam Completed 11/08/2016 53714 Scanning Computerized Ophthalmic Diagnostic Imag Posterior Completed Seg On 11/08/2016 02773 Visual Field Exam Extended Completed 11/08/2016 66857 Est Patient Comprehensive Exam Completed 06/24/2016 09334 Est Patient Intermediate Exam Completed 12/14/2015 66414 Est Patient Intermediate Exam Completed 11/20/2015 10007 Scanning Computerized Opthalmic Diagnostic Posterior Seg Completed Retina 11/20/2015 50130 Est Patient Comprehensive Exam Completed 11/09/2015 45642 Injection Intravitreal Of A Pharmacologic Agent Completed 09/28/2015 48670 Injection Intravitreal Of A Pharmacologic Agent Completed 08/10/2015 85391 Injection Intravitreal Of A Pharmacologic Agent Completed 07/30/2015 09421 Scanning Computerized Ophthalmic Diagnostic Imag Posterior Completed Seg On 07/30/2015 05954 Visual Field Exam Extended Completed 07/30/2015 35396 Est Patient Comprehensive Exam Completed 04/28/2015 33042 Est Patient Intermediate Exam Completed 04/28/2015 72512 Scanning Computerized Opthalmic Diagnostic Posterior Seg Completed Retina 2015 54724 Est Patient Intermediate Exam Completed 02/12/2015 16384 Est Patient Intermediate Exam Completed 02/02/2015 44445 Remove Secondary Cataract, Laser (Yag) Completed 01/20/2015 62270 Scanning Computerized Opthalmic Diagnostic Posterior Seg Completed Retina 01/20/2015 53287 Est Patient Comprehensive Exam Completed 01/12/2015 66091 Injection Intravitreal Of A Pharmacologic Agent Completed 12/08/2014 68954 Injection Intravitreal Of A Pharmacologic Agent Completed 11/03/2014 03678 Injection Intravitreal Of A Pharmacologic Agent Completed 10/13/2014 52852 Est Patient Intermediate Exam Completed 10/13/2014 47472 Scanning Computerized Opthalmic Diagnostic Posterior Seg Completed Retina 08/15/2014 05082 Scanning Computerized Opthalmic Diagnostic Posterior Seg Completed Retina 08/15/2014 11638 Est Patient Intermediate Exam Completed 08/04/2014 74196 Injection Intravitreal Of A Pharmacologic Agent Completed 08/01/2014 19744 Scanning Computerized Opthalmic Diagnostic Posterior Seg Completed Retina 08/01/2014 54050 Est Patient Comprehensive Exam Completed 05/05/2014 79280 Visual Field Exam Extended Completed 05/05/2014 12213 Injection Intravitreal Of A Pharmacologic Agent Completed 03/14/2014 59160 Est Patient Comprehensive Exam Completed 03/14/2014 09488 Scanning Computerized Opthalmic Diagnostic Posterior Seg Completed Retina 03/03/2014 38420 Injection Intravitreal Of A Pharmacologic Agent Completed 02/03/2014 58995 Injection Intravitreal Of A Pharmacologic Agent Completed 01/13/2014 93850 Injection Intravitreal Of A Pharmacologic Agent Completed 12/24/2013 30582 Scanning Computerized Opthalmic Diagnostic Posterior Seg Completed Retina 12/24/2013 67071 Determination Of Refractive State Completed 12/24/2013 95659 Est Patient Comprehensive Exam Completed 06/25/2013 32650 Est Patient Intermediate Exam Completed 05/14/2013 52298 Trabeculoplasty By Laser Surgery Completed 04/26/2013 30865 Est Patient Intermediate Exam Completed 04/26/2013 59854 Visual Field Exam Extended Completed 04/26/2013 48205 Scanning Computerized Ophthalmic Diagnostic Imag Posterior Completed Seg On 01/31/2013 64785 Est Patient Comprehensive Exam Completed 10/18/2012 00445 Est Patient Intermediate Exam Completed 07/10/2012 59832 Est Patient Intermediate Exam Completed 07/10/2012 516 Cod Liver Oil Tablets Completed 06/19/2012 56760 Remove Secondary Cataract, Laser (Yag) Completed 06/18/2012 54753 Est Patient Intermediate Exam Completed 05/28/2012 60023 Est Patient Intermediate Exam Completed 05/28/2012 516 Cod Liver Oil Tablets Completed 05/11/2012 81908 Visual Field Exam Extended Completed 09/30/2011 26060 Est Patient Intermediate Exam Completed 09/15/2011 75068 Trabeculoplasty By Laser Surgery Completed 09/08/2011 45663 Trabeculoplasty By Laser Surgery Completed 07/11/2011 29457 Visual Field Exam Extended Completed 07/11/2011 45015 Determination Of Refractive State Completed 07/11/2011 15744 Est Patient Comprehensive Exam Completed 03/21/2011 88171 Est Patient Intermediate Exam Completed 01/11/2011 98124 Scanning Computerized Ophthalmic Diagnostic Imag Posterior Completed Seg On 01/11/2011 11311 Est Patient Intermediate Exam Completed 08/27/2010 86298 Pachymetry Completed 08/27/2010 90644 Est Patient Intermediate Exam Completed 08/27/2010 97573 Visual Field Exam Extended Completed 08/27/2010 98879 Fundus Photography With Interpretation And Report Completed 02/10/2010 18919 Extracapsular Cataract Extraction W/Intraocular Lens Completed 02/03/2010 92733 Extracapsular Cataract Extraction W/Intraocular Lens Completed 01/14/2010 84250 Ophthalmic Biometry Completed 01/14/2010 84459 Ophthalmic Biometry Completed 01/14/2010 54657 Scanning Laser W/Interp And Report Completed 12/29/2009 03915 New Patient Comprehensive Exam Completed Encounters Type [...] Raymond Faulkner H10.523 Angular Visit 11:10a MD Ger, Kermit blepharoconjunctivitis, jeffrey Rolle bilateral Office 01/22/2016 Raymond Banerjee H35.32 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 dermatitis due to other agents Office Visit 10/07/2015 10:15a Raymond Murry, H01.001 Unspecified MD Ger, jeffrey Rolle blepharitis right upper eyelid H01.004 Unspecified blepharitis [...] Cyr Arleo, M.D. Cataract Plan of Treatment Future Appointment(s):04/16/2018 11:15 am - Raymond Cyr M.D. at Raymond Cyr MD, 04/12/2018 - Merlyn Carmen O.D.H35.032 Hypertensive retinopathy, left eyeFollow up:3 day recheck with RA as sched for CEE You can expect to have your eyes dilated at your next visit.If Dr. Carmen orders any additional testing, it may require extra time. We recommend that you bring sunglasses, as dilation drops often make you light sensitive until they wear off. We always recommend you bring someone to drive you home if you are uncomfortable driving with your eyes dilated. 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
[2018-05-01 21:17] VITALS: BP 155/72
--- NOTE | 2018-05-01 21:42 | ED ---
GI/ HPI - HPI Summary HPI Summary: patient with hx. 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 - History of Current Complaint Chief Complaint: UCGI Time Seen by Provider: 05/01/18 21:11 Stated Complaint: CONSTIPATION Onset/Duration: Still Present Timing: Intermittent Pain Intensity: 0 - Allergy/Home Medications Allergies/Adverse Reactions: Allergies Allergy/AdvReac Type Severity Reaction Status Date / Time No Known Drug Allergies Allergy Unknown Verified 05/01/18 21:17 Reaction Details Home Medications: Home Medications Acetaminophen [Acetaminophen Extra Strength] 500 mg PO DAILY 05/01/18 [History Confirmed 05/01/18] Erythromycin OPTH OINT* [Erythromycin 0.5% OPTH OINT*] 05/01/18 [History] Oxygen 2 Liters* BEDTIME 05/01/18 [History] PMH/Surg Hx/FS Hx/Imm Hx Previously Healthy: Yes Endocrine/Hematology History: Reports: Hx Thyroid Disease - PARATHYROID SURGERY ABOUT 15 YRS AGO, Other Endocrine/Hematological Disorders - parathyroid surgery 15 years ago Denies: Hx Anticoagulant Therapy, Hx Diabetes Cardiovascular History: Reports: Hx Hypertension Denies: Hx Congestive Heart Failure, Hx Pacemaker/ICD Respiratory History: Reports: Hx Chronic Obstructive Pulmonary Disease (COPD), Hx Pneumonia, Other Respiratory Problems/Disorders - 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 Sensory History: Reports: Hx Cataracts, Hx Glaucoma - BILATERAL Denies: Hx Contacts or Glasses, Hx Eye Injury, Hx Eye Prosthesis, Hx Vision Problem, Hx Deafness, Hx Hearing Aid, Hx Hearing Problem Opthamlomology History: Reports: Hx Cataracts, Hx Glaucoma - BILATERAL Denies: Hx Contacts or Glasses, Hx Eye Injury, Hx Eye Prosthesis, Hx Vision Problem Neurological History: Reports: Other Neuro Impairments/Disorders - Childhood: POLIO, migraines Denies: Hx Dementia, Hx Developmental Delay, Hx Headaches, Hx Migraine, Hx Seizures, Hx Spinal Cord Injury, Hx Transient Ischemic Attacks (TIA) Psychiatric History: Reports: Hx Anxiety - ON MEDICATION FOR, Hx Depression - ON MEDICATION FOR Denies: Hx Substance Abuse - Cancer History Cancer Type, Location and Year: polio, osteoporosis Hx Chemotherapy: No Hx Radiation Therapy: No - Surgical History Surgery Procedure, Year, and Place: PARATHYROID- 21 YEARS. BREAST SURGERY- DIFFICULTY BREATHING- PLACED ON A VENTILATOR FOR A SHORT PERIOD[place] [facility] [place] 15 [place]ARS [place]GO. "kidney stone blasting[place] [place]x Anesthesia Reactions: Yes - PROBLEMS WITH BREATHING DURING SURGERY- 15 YEARS AGO Infectious Disease History: No Infectious Disease History: Reports: Hx Shingles Denies: Hx Clostridium Difficile, Hx Hepatitis, Hx Human Immunodeficiency Virus (HIV), Traveled Outside the [place] in Last 30 Days - Family History Known Family History: Positive: Cardiac Disease, Hypertension - Social History Alcohol Use: Occasionally Alcohol Amount: glass of wine with dinner Substance Use Type: Reports: None Smoking Status (MU): Former Smoker Amount Used/How Often: 1 1/2 PPD X 20 YEARS Review of Systems Constitutional: Negative Eyes: Negative ENT: Negative Cardiovascular: Negative Respiratory: Negative Positive: Other - constipation Musculoskeletal: Negative Skin: Negative Neurological: Negative All Other Systems Reviewed And Are Negative: Yes Physical Exam Triage Information Reviewed: Yes Vital Signs On Initial Exam: Initial Vitals Temp Pulse Resp BP Pulse Ox 37.3 C 91 18 155/72 96 05/01/18 21:08 05/01/18 21:08 05/01/18 21:08 05/01/18 21:08 05/01/18 21:08 Vital Signs Reviewed: Yes Appearance: Positive: Well-Appearing Skin: Positive: Warm, Dry Head/Face: Positive: Normal Head/Face Inspection Eyes: Positive: Normal ENT: Positive: Normal ENT inspection Abdomen Description: Positive: Nontender Bowel Sounds: Positive: Present, Other - rectal exam without masses, some small skin tags, no evidence for fecal impaction Musculoskeletal: Positive: Normal Diagnostics - Vital Signs Vital Signs Temp Pulse Resp BP Pulse Ox 05/01/18 21:08 37.3 C 91 18 155/72 96 - Laboratory Lab Statement: Any lab studies that have been ordered have been reviewed, and results considered in the medical decision making process. GIGU Course/Dx - Diagnoses Provider Diagnoses: Chronic constipation, Chronic narcotic use Discharge - Sign-Out/Discharge Documenting (check all that apply): Patient Departure All imaging exams completed and their final reports reviewed: No Studies - Discharge Plan Condition: Good Disposition: HOME Prescriptions: Sennosides [Senna Laxative] 8.6 mg PO DAILY #30 tablet Patient Education Materials: Constipation (DC), Safe Use of Narcotics (ED) Referrals: Og Powell MD [Primary Care Provider] - - Billing Disposition and Condition Condition: GOOD Disposition: Home
[2018-05-01] MEDS ORDERED: Magnesium Hydroxide LIQ* 30 ML UDC PO ONE (21:51)
== END 2018-05-01 22:02 | disposition home or self-care (01) ==
LOC: UCEAST 21:02
DX: K59.09 Other constipation (principal); Z79.891 Long term (current) use of opiate analgesic; F32.9 Major depressive disorder, single episode, unspecified; F41.9 Anxiety disorder, unspecified; Z87.891 Personal history of nicotine dependence
CPT/HCPCS: 99212; G0463

== ENCOUNTER 2018-11-17 16:06 | Inpatient (IN) | payer MEDICARE, OTHER ==
--- NOTE | 2018-11-17 18:09 | ED ---
Complex/Multi-Sys Presentation - HPI Summary HPI Summary: 88 year old F presenting to [facility] from home accompanied by nephew Nickolas complains of right shoulder pain, right arm pain, right hip, right leg pain s/p standing, turning around faster than normal, falling on to right side this afternoon. The patient rates the pain 2/10 in severity. Symptoms aggravated by nothing. Symptoms alleviated by nothing. Patient denies hitting her head. Patient denies right knee pain. Patient has fallen before on right side which required rehab at [facility]. 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 Patient normally walks with walker but was not using her walker when she fell today. Patient wears knee brace on her right knee. Patient uses O2 at night. Vital signs while in room: HR 95 bpm, BP 159/104, O2 sat 91% Home Medications Medication Instructions Recorded Confirmed Type amLODIPine TAB* [Norvasc TAB*] 5 mg PO QAM 08/23/12 05/01/18 History Brimonidine P 0.1%(NF) [Alphagan P 2 drop BOTH EYES QPM 11/15/13 05/01/18 History 0.1% (NF)] Bupropion XL* [Wellbutrin XL (NF)] 150 mg PO DAILY 11/15/13 05/01/18 History LORazepam TAB(*) [Ativan TAB(*)] 0.5 mg PO DAILY 11/15/13 05/01/18 History Multivitamins/Mins (NF) AREDS2 1 cap PO BID 11/15/13 05/01/18 History [Preservision Areds 2] Potassium Citrate (NF) [Urocit-K 10 meq PO BID 11/15/13 05/01/18 History 10 (NF)] oxyCODONE SR TAB(*) [Oxycontin(*)] 10 mg PO DAILY 11/15/13 05/01/18 History Denosumab(NF) [Prolia(NF)] 60 mg SC SEE INSTRUCTIONS 03/17/16 05/01/18 History Naproxen Sodium 220 mg PO 10/11/16 History Acetaminophen [Acetaminophen Extra 500 mg PO DAILY 05/01/18 05/01/18 History Strength] Erythromycin OPTH OINT* 05/01/18 History [Erythromycin 0.5% OPTH OINT*] Oxygen 2 Liters* BEDTIME 05/01/18 History Sennosides [Senna Laxative] 8.6 mg PO DAILY #30 tablet 05/01/18 Rx - History Of Current Complaint Chief Complaint: EDFall Hx Obtained From: Patient Onset/Duration: Sudden Onset, Lasting Hours, Still Present Timing: Constant Severity Currently: Mild - 09/02 Location: Pain At: - right shoulder, right arm, right hip, right leg Aggravating Factor(s): Nothing Alleviating Factor(s): Nothing - Allergies/Home Medications Allergies/Adverse Reactions: Allergies Allergy/AdvReac Type Severity Reaction Status Date / Time No Known Drug Allergies Allergy Unknown Verified 11/17/18 16:11 Reaction Details PMH/Surg Hx/FS Hx/Imm Hx Previously Healthy: No Endocrine/Hematology History: Reports: Hx Thyroid Disease - PARATHYROID SURGERY ABOUT 15 YRS AGO, Other Endocrine/Hematological Disorders - parathyroid surgery 15 years ago Denies: Hx Anticoagulant Therapy, Hx Diabetes Cardiovascular History: Reports: Hx Hypertension Denies: Hx Congestive Heart Failure, Hx Pacemaker/ICD Respiratory History: Reports: Hx Chronic Obstructive Pulmonary Disease (COPD), Hx Pneumonia, Other Respiratory Problems/Disorders - 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 Sensory History: Reports: Hx Cataracts, Hx Glaucoma - BILATERAL Denies: Hx Contacts or Glasses, Hx Eye Injury, Hx Eye Prosthesis, Hx Vision Problem, Hx Deafness, Hx Hearing Aid, Hx Hearing Problem Opthamlomology History: Reports: Hx Cataracts, Hx Glaucoma - BILATERAL Denies: Hx Contacts or Glasses, Hx Eye Injury, Hx Eye Prosthesis, Hx Vision Problem Neurological History: Reports: Other Neuro Impairments/Disorders - Childhood: POLIO, migraines Denies: Hx Dementia, Hx Developmental Delay, Hx Headaches, Hx Migraine, Hx Seizures, Hx Spinal Cord Injury, Hx Transient Ischemic Attacks (TIA) Psychiatric History: Reports: Hx Anxiety - ON MEDICATION FOR, Hx Depression - ON MEDICATION FOR Denies: Hx Substance Abuse - Cancer History Cancer Type, Location and Year: polio, osteoporosis Hx Chemotherapy: No Hx Radiation Therapy: No - Surgical History Surgery Procedure, Year, and Place: PARATHYROID- 20 YEARS. BREAST SURGERY- DIFFICULTY BREATHING- PLACED ON A VENTILATOR FOR A SHORT PERIOD- [facility] [place]- 15 YEARS AGO. "kidney stone blasting-[facility] [place] Hx Anesthesia Reactions: Yes - PROBLEMS WITH BREATHING DURING SURGERY- 15 YEARS AGO Infectious Disease History: No Infectious Disease History: Reports: Hx Shingles Denies: Hx Clostridium Difficile, Hx Hepatitis, Hx Human Immunodeficiency Virus (HIV), Traveled Outside the [place] in Last 30 Days - Family History Known Family History: Positive: Cardiac Disease, Hypertension, Other - mother had osteoporosis - Social History Alcohol Use: Occasionally Alcohol Amount: glass of wine with dinner Hx Substance Use: No Substance Use Type: Reports: None Hx Tobacco Use: Yes Smoking Status (MU): Former Smoker Amount Used/How Often: 1 1/2 PPD X 20 YEARS Review of Systems Musculoskeletal: Negative - right knee pain Positive: Other - right shoulder pain, right arm pain, right hip, right leg pain Negative: Bruising All Other Systems Reviewed And Are Negative: Yes Physical Exam - Summary Physical Exam Summary: Appearance: Well-appearing, no pain distress, thin Skin: Warm, color reflects adequate perfusion, dry Head: Normal Head/Face inspection, atraumatic Eyes: Conjunctiva clear ENT: Normal inspection Neck: Supple, no nodes, no JVD Respiratory: Lungs clear, normal breath sounds, no respiratory distress Cardio: RRR, No murmur, pulses normal, brisk capillary refill Abdomen: Soft, nontender Bowel sounds: Present Musculoskeletal: Strength Intact/ROM intact, no calf tenderness, no edema, good pulses distally, patient has kyphosis, no foreshortening, no inversion or eversion, tender lateral greater trochanter, right shoulder without deformity, right shoulder FROM, right knee FROM with chronic arthritic deformity, right ankle is non-tender and has no deformity Psychological: Normal Neuro: Alert, muscle tone normal, no focal deficit Triage Information Reviewed: Yes Vital Signs On Initial Exam: Initial Vitals Temp Pulse Resp BP Pulse Ox 97.8 F 89 16 151/75 90 11/17/18 16:11 11/17/18 16:11 11/17/18 16:11 11/17/18 16:11 11/17/18 16:11 Vital Signs Reviewed: Yes Diagnostics - Vital Signs Vital Signs Temp Pulse Resp BP Pulse Ox 04/27/19 16:11 97.8 F 89 16 151/75 90 - Laboratory Result Diagrams: 11/17/18 19:55 11/17/18 19:55 Lab Statement: Any lab studies that have been ordered have been reviewed, and results considered in the medical decision making process. - Radiology Hip/Pelvis Radiology Interpretation Completed By: Radiologist Summary of Radiographic Findings: RIGHT FEMORAL NECK FRACTURE. ED physician has reviewed this report. R shoulder Radiology Interpretation Completed By: Radiologist Summary of Radiographic Findings: 1. OSTEOPENIA.2. OSTEOARTHRITIS.3. NO ACUTE OSSEOUS INJURY. THE DEGREE OF OSTEOPENIA MAY MAKE A NONDISPLACED FRACTURE RADIOGRAPHICALLY OCCULT. IF SYMPTOMS PERSIST, RECOMMEND REPEAT IMAGING. ED physician has reviewed this report. CXR Summary of Radiographic Findings: Elevated left darrell diaphragm, abnormal right lung tian, possible cardiac shadow shifted by hiatal hernia on left. Pending official report. - EKG 1941 Cardiac Rate: NL - 96 BPM EKG Rhythm: Sinus Rhythm ST Segment: Non-Specific Ectopy: None EKG Comparison: No Significant Change - Compared to 08/26/14 Summary of EKG Findings: Nml AV/IV CT, nml QTc, and nml axis. No acute changes Re-Evaluation - Re-Evaluation First Eval Re-Evaluation Time: 20:24 Comment: Patient is lying on stretcher with family. Patient's niece is at bedside. Complex Multi-Symp Course/Dx Course Of Treatment: Patient medications reviewed this visit. Nurses notes reviewed. Allergies noted. High blood pressure noted. Hip/pelvis x-ray shows RIGHT FEMORAL NECK FRACTURE. Shoulder x-ray shows 1. OSTEOPENIA. 2. OSTEOARTHRITIS. 3. NO ACUTE OSSEOUS INJURY. THE DEGREE OF OSTEOPENIA MAY MAKE A NONDISPLACED FRACTURE RADIOGRAPHICALLY OCCULT. Bloodwork was unremarkable. CXR shows elevated left darrell diaphragm, abnormal right lung tian, possible cardiac shadow shifted by hiatal hernia on left. Spoke with Dr. Mcduffie, orthopedics, who will consult tomorrow and have her get admitted to medicine Spoke with Dr. Buitrago, hospitalist, who agrees to admit patient. Patient will be admitted to Dr. Buitrago, hospitalist. She is agreeable to admission. - Diagnoses Provider Diagnoses: Fracture of femoral neck, right, Fall - Physician Notifications Discussed Care Of Patient With: Rodolfo Mcduffie Time Discussed With Above Provider: 18:57 Instructed by Provider To: Other - Dr. Mcduffie, orthopedics, will consult tomorrow and have her get admitted to medicine. Spoke with Dr. Buitrago, hospitalist, at 1917, who agrees to admit patient. Discharge - Sign-Out/Discharge Documenting (check all that apply): Patient Departure - Admit Patient Received Moderate/Deep Sedation with Procedure: No - Discharge Plan Disposition: ADMITTED TO [facility] Referrals: Og Powell MD [Primary Care Provider] - - Attestation Statements Document Initiated by Scribe: Yes Documenting Scribe: Shila Lepe Provider For Whom Scribe is Documenting (Include Credential): Alia Barr MD Scribe Attestation: Shila Verdugo, scribed for Alia Barr MD on 11/17/18 at [id number]. Status of Scribe Document: Ready
[2018-11-17 20:11] LABS: ABS Basophils 0 10^3/ul (0-0.2); ABS Eosinophils 0.2 10^3/ul (0-0.6); ABS Lymphocytes 1.6 10^3/ul (1.0-4.8); ABS Monocytes 0.8 10^3/ul (0-0.8); ABS Neutrophils 6.7 10^3/ul (1.5-7.7); ABS Nucleated RBC 0 10^3/ul; Eosinophil % 2.2 %; Hematocrit 36 % (33-41); Hemoglobin 11.8 g/dL (12.0-16.0); Lymphocyte % 17.6 %; Mean Corpuscular HGB Conc 33 g/dL (31-36); Mean Corpuscular Hemoglobin 31 pg (27-31); Mean Corpuscular Volume 94 fL (80-97); Mean Platelet Volume 9.2 fL (7.4-10.4); Nucleated Red Blood Cells % 0; Platelet Count 171 10^3/uL (150-450); Red Blood Count 3.86 10^6 /uL (3.70-4.87); Red Cell Distribution Width 14 % (10.5-15); White Blood Count 9.4 10^3/uL (3.5-10.8)
[2018-11-17 20:18] LABS: Activated Partial Thrombo Time 28.3 seconds (26.0-36.3)
[2018-11-17 20:29] LABS: Albumin 4.5 g/dL (3.2-5.2); Albumin/Globulin Ratio 2.1 (1-3); BUN/Creatinine Ratio 27.7 (8-20); Calcium 11.2 mg/dL (8.6-10.3); EGFR African American 37.2 (>60); EGFR Non-African American 30.7 (>60); Globulin 2.1 g/dL (2-4); Potassium 3.8 mmol/L (3.5-5.0); Total Bilirubin 0.6 mg/dL (0.2-1.0); Total Protein 6.6 g/dL (6.4-8.9)
[2018-11-17 20:56] LABS: TSH (Thyroid Stimulating Horm) 2.12 mcIU/mL (0.34-5.60)
[2018-11-17] MEDS ORDERED: NS 0.9% 1000 ML** 1,000 ML IV SCH (22:30)
[2018-11-17] MEDS ORDERED: Heparin VIAL(*) 5000 UNITS/ML VIAL (FIVE THOUSAND) SUBCUT SCH (23:00)
[2018-11-17] MEDS: LORazepam TAB(*) 0.5 MG PO SCH (23:22)
[2018-11-17] MEDS: oxyCODONE TAB* 5 MG TAB PO PRN (23:30)
[2018-11-18] MEDS: amLODIPine TAB* 5 MG PO SCH ×2 (00:20→12:04)
[2018-11-18] MEDS: Acetaminophen TAB* 325 MG PO SCH ×4 (00:22→16:56)
--- NOTE | 2018-11-18 00:30 | HP ---
HISTORY AND PHYSICAL: DATE OF ADMISSION: 11/17/17 CHIEF COMPLAINT: Right hip pain and fall. PRIMARY CARE PROVIDER: gO Powell MD PAYROLL PROFESSIONAL: The patient's niece, Melani Elliott. CODE STATUS: DNR/DNI. REASON FOR ADMISSION: Right femur fracture. HPI was obtained from the patient and review of medical chart. The patient is an adequate historian. HISTORY OF PRESENT ILLNESS: This is an 88-year-old female domiciled alone at [facility] with past medical history of anxiety, on benzodiazepines; chronic kidney disease stage 2 to 3; hypertension; osteoporosis; childhood history of polio; COPD, on p.r.n. oxygen 2 L; and severe osteoarthritis, on chronic opioid pain medication, who presented status post mechanical fall. The patient reports that she lost her footing when turning around quickly at [facility] and fell on her right hip and shoulder. She denied loss of consciousness or head trauma. She was A and O x4 throughout the entire event. She usually ambulates with a walker and is independent in her IADLs and ADLs other than driving at baseline. As soon as she fell, she had immediate pain in the right leg. She was able to stand and ambulate for a few steps, but her pain persisted and thus she asked the house to call the ambulance. EMERGENCY ROOM COURSE: In the ED, her blood pressure is 151/75, heart rate 89, satting 90% on 2 L, respiratory rate 16. A right hip radiograph was completed, which shows a right femoral neck fracture. A right shoulder radiograph was completed that showed osteopenia and arthritis without acute fracture and a chest x- ray was completed, which shows marked elevation of the left hemidiaphragm and severe kyphosis, but otherwise no acute cardiopulmonary disease. An EKG was done, which shows sinus tachycardia without any evidence of acute ischemia. The hospitalist team was called to evaluate the patient for admission and Surgery was made aware of the patient. PAST MEDICAL HISTORY: 1. Anxiety, on benzodiazepines 2. chronic kidney disease stage 2 to 3 3, hypertension; osteoporosis, followed by Dr. Stone 4. 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 COPD 6. Severe osteoarthritis, on chronic opioid pain medication. PAST SURGICAL HISTORY: None. FAMILY HISTORY: Noncontributory. ALLERGIES: No known drug allergies. MEDICATIONS: 1. Aleve 220 mg p.o. daily. 2. Brimonidine 2 drops in both eyes q.p.m. 3. Bupropion 150 mg p.o. daily. 4. Calcium 600 mg p.o. daily. 5. Denosumab 60 mg subcutaneous q.4 weeks. 6. Lorazepam 0.5 mg p.o. daily. 7. OxyContin 1 tab p.o. daily. 8. Potassium citrate 10 mEq p.o. daily. REVIEW OF SYSTEMS: Constitutional: Negative for fevers and chills, malaise. HEENT: Negative for vision changes, headaches, sore throat. Cardiovascular: Negative for chest pain, palpitations, orthopnea. Respiratory: Negative for cough. Positive for mild shortness of breath, not beyond baseline. GI: Negative for nausea, vomiting, diarrhea, abdominal pain. : Negative for dysuria, hematuria. Musculoskeletal: Positive for right hip pain. Otherwise no arthralgias or myalgias. Skin: Negative for rashes or lesions. Neurological: Negative for focal weakness or numbness. Psychiatric: Negative for delusions, anxiety, or depression. Endocrine: Negative for polyuria, polydipsia. Heme: Negative for bruising, bleeding, or lymphadenopathy. PHYSICAL EXAMINATION GENERAL APPEARANCE: The patient is a frail-appearing elderly woman, in no acute distress, pleasant, A and O x3, but quite anxious. VITAL SIGNS: Blood pressure is 174/70, heart rate 97, respiratory rate 21, oxygen saturation is 90% on 2 L. HEENT: Moist mucous membranes. Pupils are equal and reactive. Extraocular muscles are intact. Sclerae anicteric. NECK: Supple with no supraclavicular, cervical lymphadenopathy. RESPIRATORY: The patient is clear to auscultation bilaterally. She is severely kyphotic with chest wall deformity that is longstanding from her history of polio. Furthermore, dextrocardia is noted on exam and bowel sounds are noted in the left anterior lung field. CARDIAC: She has regular rate and rhythm with 2/6 systolic ejection murmur that radiates to carotids. GI: Belly is soft, nontender, nondistended, and scaphoid. SKIN: No evidence of rashes or lesions. MUSCULOSKELETAL: She moves all 4 limbs spontaneously. She has palpable pulses in bilateral lower extremities at dorsalis pedis. Feet are mildly clubbed with discrepancy and size, which is according to her baseline. Right lower extremity is externally rotated. Sensation is intact and the patient is able to move her toes. NEURO/PSYCH: Cranial nerves II through XII are intact. Sensation is intact bilaterally to lower extremities and upper extremities. Strength is intact, 5/ 5 in all upper extremities and lower extremities. DIAGNOSTIC STUDIES/LAB DATA: BMP was done, which shows sodium of 140, potassium 3.8, chloride 97, carbon dioxide 34, BUN 44, creatinine 1.59, glucose 87, calcium 11.2, lactic acid 0.9. LFTs: AST 23, ALT 24, alkaline phosphatase 47, albumin 4.5, and TSH 2.12. CBC was done, white blood cell count 9.4, hemoglobin 11.8, hematocrit 36, platelets 171. INR is 1. Imaging completed with a chest x-ray that shows elevated left hemidiaphragm and with both bowel and spleen and space of left lower ribcage and significant rotation as well as mild displacement of cardiac silhouette to right lung field , otherwise no active cardiopulmonary disease. Shoulder radiograph shows osteopenia and porosis without active fracture and hip and pelvis x-ray shows right femoral neck fracture and osteoporosis and osteopenia. EKG was done, which showed sinus tachycardia with no active signs of ischemia. Labs, imaging , and EKG were reviewed by myself. ASSESSMENT AND PLAN: This is an 88-year-old female domiciled alone at [facility], ambulates with a walker at baseline with past medical history of anxiety ; hypertension; osteoporosis; and severe osteoarthritis, on chronic opioid, who presented status post mechanical fall, found to have a right femoral neck fracture. 1. Right femoral neck fracture, ortho team is aware. She is currently on nonweightbearing status. Pain control with [id number] Tylenol and breakthrough pain for oxycodone. DVT prophylaxis: Per surgical team, she will receive 1 dose of subcutaneous heparin this evening and we will hold pending possible surgical plans for 11/18/18. 2. Chronic kidney disease. Her creatinine is close to baseline. We will continue gentle IV fluids at 100 cc/hour for a total of 1 L given n.p.o. status. 3. Anxiety. We will continue her home meds, Wellbutrin and low dose Ativan p.r.n. daily. 4. Chronic obstructive pulmonary disease, on p.r.n. oxygen and nebulizers are to be offered here. 5. Osteoporosis. We will hold denosumab. The patient has mild hypercalcemia, which is likely a result of this medication. 6. History of childhood polio. As above, the patient is on p.r.n. oxygen with no active issues. 7. FEN: She is n.p.o. after midnight. 8. Disposition: The patient is stable for admission to a short stay medical/ surgical floor. 9. Code status: The patient is DNR/DNI and MOLST form is completed. TIME SPENT: Forty minutes was spent on the planning of this admission with over half of that spent directly at the bedside with the patient, providing direct patient care. Plan of care is discussed with the patient and her healthcare proxy and they have no further questions. [id number]/CPS #: [id number] MTDAnne
[2018-11-18 00:58] LABS: Urine Appearance Cloudy; Urine Bilirubin Negative (Negative); Urine Blood Negative (Negative); Urine Color Yellow; Urine Glucose Negative (Negative); Urine Ketones Trace (Negative); Urine Nitrite Negative (Negative); Urine Protein Negative (Negative); Urine Specific Gravity 1.014 (1.010-1.030); Urine Urobilinogen Negative (Negative)
[2018-11-18 07:56] LABS: ABS Basophils 0 10^3/ul (0-0.2); ABS Eosinophils 0.2 10^3/ul (0-0.6); ABS Lymphocytes 0.8 10^3/ul (1.0-4.8); ABS Monocytes 0.6 10^3/ul (0-0.8); ABS Neutrophils 3.3 10^3/ul (1.5-7.7); ABS Nucleated RBC 0 10^3/ul; Eosinophil % 4.6 %; Hematocrit 34 % (33-41); Hemoglobin 11.4 g/dL (12.0-16.0); Lymphocyte % 16.2 %; Mean Corpuscular HGB Conc 33 g/dL (31-36); Mean Corpuscular Hemoglobin 31 pg (27-31); Mean Corpuscular Volume 94 fL (80-97); Mean Platelet Volume 9.1 fL (7.4-10.4); Nucleated Red Blood Cells % 0; Platelet Count 134 10^3/uL (150-450); Red Blood Count 3.65 10^6 /uL (3.70-4.87); Red Cell Distribution Width 15 % (10.5-15)
[2018-11-18 08:01] LABS: INR 1.05 (0.82-1.09)
[2018-11-18 08:17] LABS: EGFR African American 49.5 (>60); EGFR Non-African American 40.9 (>60); Potassium 3.5 mmol/L (3.5-5.0)
--- NOTE | 2018-11-18 11:50 | PN ---
Progress Note - Progress Note Date of Service: 11/18/18 SOAP: ORTHO CONSULT Subjective: [88 yo female who fell at her place of residence yesterday, 11/17/18. She lives at [facility]. She lost her footing while turning around and fell onto her right hip and shoulder. Denies LOC or head trauma. She was transported by ambulance to [facility]. Xrays of R hip show a valgus impacted femoral neck fracture. Patient was admitted and ortho was consulted. She usually ambulates with a walker and is independent in her ADLs Upon questioning, patient is reporting little to no pain.] Objective: [A and O x 3 NAD Appears to be resting comfortably in bed. Inspection R hip - no visible ecchymosis . RLE externally rotated. Skin intacat. DP pulse 2+ and equal bilaterally. Feet are mildly clubbed with discepancy in size which, according to her, is baseline. Sensation is intact throughout. Calves soft, NT. Able to wiggle toes.] Assessment: [R hip valgus impacted femoral neck fracture] Plan: [To OR tomorrow for ORIF R femoral neck, cannulated screws, with Dr. Mcduffie Bed rest NPO after midnight]
[2018-11-18] MEDS: LORazepam TAB(*) 0.5 MG PO SCH (12:04)
[2018-11-18] MEDS: BuPROPion XL* 150 MG TAB.XL PO SCH (12:05)
[2018-11-18] MEDS: PTO:Potassium Citrate (NF) 10 MEQ TAB PO SCH (12:06)
--- NOTE | 2018-11-18 12:15 | PN ---
Subjective Date of Service: 11/18/18 Interval History: pt reports she doesnt have any pain at rest but does have sharp pain in right hip with movements. she reports good appetite. reports mild cold last week with some a sore throat which has mostly resolved but does report she saw her PCP last week for the throat and she recommended to give it some time and if it doesn't resolve she would refer her to an ENt. Reports right arm shoulder pain reporting she has some pain when raising arm above head. has noted good ROm. no noted ecchymosis or open area Denies CP/ SOB. Wears O2 at nighttime only. long hx of COPD. Denies cough, sputum production. Objective Active Medications: Acetaminophen (Tylenol Tab*) 650 mg PO Q6H [facility] Last Admin: 11/18/18 12:05 Dose: 650 mg Albuterol/Ipratropium (Duoneb (Albuterol 2.5 Mg/Ipratropium 0.5 Mg)) 1 neb INH Q6H PRN PRN Reason: SOB/WHEEZING Amlodipine Besylate (Norvasc Tab*) 5 mg PO DAILY [facility] Last Admin: 11/18/18 12:04 Dose: 5 mg Brimonidine Tartrate (Alphagan P 0.1% (Nf)) 2 drop BOTH EYES QPM [facility] Bupropion HCl (Wellbutrin Xl *) 150 mg PO DAILY [facility] Last Admin: 11/18/18 12:05 Dose: 150 mg Lorazepam (Ativan Tab(*)) 0.5 mg PO DAILY [facility] Last Admin: 11/18/18 12:04 Dose: 0.5 mg Oxycodone HCl (Roxycodone Tab*) 5 mg PO Q6H PRN PRN Reason: HEADACHE/PAIN Last Admin: 11/17/18 23:30 Dose: 5 mg Potassium Citrate (Urocit-K 10 (Nf)) 10 meq PO DAILY [facility] Last Admin: 11/18/18 12:06 Dose: Not Given Vital Signs - 8 hr 11/18/18 11/18/18 11/18/18 07:41 08:00 12:04 Temperature 97.9 F Pulse Rate 79 Respiratory 16 18 16 Rate Blood Pressure 161/68 (mmHg) O2 Sat by Pulse 100 Oximetry Oxygen Devices in Use Now: None Appearance: thin elderly female laying in bed visiting with kaity in NAD, A+O x3 Eyes: No Scleral Icterus, PERRLA Ears/Nose/Mouth/Throat: NL Teeth, Lips, Gums, Mucous Membranes Moist Neck: NL Appearance and Movements; NL JVP Respiratory: Symmetrical Chest Expansion and Respiratory Effort, Clear to Auscultation, - - barrel chest Cardiovascular: NL Sounds; No Murmurs; No JVD, RRR, No Edema Abdominal: NL Sounds; No Tenderness; No Distention Extremities: No Edema, - - right LE shorter than left, no noted open areas or ecchymosis noted Neurological: Alert and Oriented x 3, NL Sensation, NL Muscle Strength and Tone Lines/Tubes/Other Access: Clean, Dry and Intact Peripheral IV Nutrition: Taking PO's Result Diagrams: 11/18/18 07:15 11/18/18 07:15 Microbiology and Other Data: Microbiology 11/18/18 00:32 Nasal Screen MRSA (PCR) - Final Nasal Mrsa Not Detected Assess/Plan/Problems-Billing Assessment: 88 yo female with a PMH of childhood polio, COPD on 2L QHS, severe osteoarthritis, HTN, CKD stage 2/3, anxiety on benzodiazepines, chronic pain on opioids who had a mechanical fall who suffered a right hip fracture - Patient Problems (1) Fracture of right hip Comment: - Right femoral neck fx - Appreciate ortho consult - RCRI score is 0 which places her at a 3.9% risk of cardiac complication. reviewed patient EKG on admission and EKG 2014 - no noted changes. There are no further cardiac work up recommendations for this patient; she is optimized to proceed with surgery. Last echo we have on record is from 2009 - showing mild plm HTN, EF 55%, no noted - pain control, bowel regimen - PT post op (2) Hypertension Comment: - hx of HTN, is currently not on medication. Blood pressures appear elevated SBP 160's - plan to start norvasc - will give one dose now and hold tomorrow due to surgery; will need to be re-evaluated. (3) COPD (chronic obstructive pulmonary disease) Comment: - does not appear to be in exacerbation. O2 prn - nebs prn (4) Chronic back pain Comment: - hold home dose oxycontin, continue oxycodone prn for hip fx (5) Depression Status: Chronic Comment: with anxiety continue wellbutrin and ativan (6) DNR (do not resuscitate) (7) DVT prophylaxis Comment: give 1 dose HSQ 5000 unit x 1 now then hold for surgery Status and Disposition: inpatient with hip fx. patient will likely require subacute rehab - she would like to go to [facility].
[2018-11-18] MEDS ORDERED: Magnesium Hydroxide LIQ* 30 ML UDC PO PRN (15:41)
[2018-11-18] MEDS ORDERED: amLODIPine TAB* 5 MG PO ONE (16:00)
[2018-11-18] MEDS ORDERED: Heparin VIAL(*) 5000 UNITS/ML VIAL (FIVE THOUSAND) SUBCUT ONE (16:00)
[2018-11-18] MEDS: Docusate CAP* 100 MG PO PRN (16:56)
[2018-11-18] MEDS: Brimonidine P 0.1%(NF) 1 DROP BTL BOTH EYES SCH (16:57)
[2018-11-18] MEDS ORDERED: Morphine ORAL CONCENTRATE* 5 MG/0.25 ML ORAL.SYRIN PO PRN (20:25)
[2018-11-18] MEDS: Albuterol/Ipratropium NEB.SOL* Albuterol 2.5 MG/Ipratropium 0.5 MG 3 ML INH PRN (20:39)
[2018-11-18] MEDS: Senna TAB PO SCH (23:29)
[2018-11-19] MEDS: Acetaminophen TAB* 325 MG PO SCH ×4 (00:35→22:06)
[2018-11-19 06:00] LABS: ABS Basophils 0 10^3/ul (0-0.2); ABS Eosinophils 0.3 10^3/ul (0-0.6); ABS Lymphocytes 0.8 10^3/ul (1.0-4.8); ABS Monocytes 0.6 10^3/ul (0-0.8); ABS Neutrophils 3.7 10^3/ul (1.5-7.7); ABS Nucleated RBC 0 10^3/ul; Eosinophil % 5.8 %; Hematocrit 32 % (33-41); Hemoglobin 10.7 g/dL (12.0-16.0); Lymphocyte % 14.1 %; Mean Corpuscular HGB Conc 34 g/dL (31-36); Mean Corpuscular Hemoglobin 32 pg (27-31); Mean Corpuscular Volume 94 fL (80-97); Mean Platelet Volume 8.9 fL (7.4-10.4); Nucleated Red Blood Cells % 0; Platelet Count 125 10^3/uL (150-450); Red Blood Count 3.39 10^6 /uL (3.70-4.87); Red Cell Distribution Width 14 % (10.5-15); White Blood Count 5.4 10^3/uL (3.5-10.8)
[2018-11-19 06:19] LABS: BUN/Creatinine Ratio 24.8 (8-20); Calcium 9.8 mg/dL (8.6-10.3); EGFR African American 50.9 (>60); EGFR Non-African American 42.1 (>60); Potassium 3.6 mmol/L (3.5-5.0)
[2018-11-19] MEDS: hydrALAZINE IV* 20 MG/ML VIAL IV SLOW PU PRN (09:23)
[2018-11-19] MEDS: LORazepam TAB(*) 0.5 MG PO PRN (09:24)
[2018-11-19] MEDS: LORazepam TAB(*) 0.5 MG PO SCH (10:26)
[2018-11-19] MEDS: PTO:Potassium Citrate (NF) 10 MEQ TAB PO SCH (10:27)
[2018-11-19] MEDS: Senna TAB PO SCH (10:27)
[2018-11-19] MEDS ORDERED: Lidocaine 2% PF * 5 ML VIAL ONE (13:15)
[2018-11-19] MEDS ORDERED: Bupivacaine 0.25% EPI 200,000* 30 ML SDV ONE (13:15)
[2018-11-19] MEDS ORDERED: Propofol* 10 MG/ML 20 ML BTL ONE (13:15)
[2018-11-19] MEDS ORDERED: Midazolam* 1 MG/ML 2 ML VIAL (2 MG) ONE (13:29)
[2018-11-19] MEDS ORDERED: KETAMINE HCL* 50 MG/ML 10 ML VIAL ONE (13:29)
[2018-11-19] MEDS ORDERED: ceFAZolin 2 GM PREMIX in ORs 2 GM/50 ML BAG IVPB ONE (13:38)
--- NOTE | 2018-11-19 13:48 | PN ---
Progress Note - Progress Note Date of Service: 11/19/18 Note: Full consult note dictated by GERMAN Liu. She is an 88 year old female with a valgus impacted femoral neck fracture. She ambulates with a walker and has some residual disability related to polio that affected her left leg. The plan will be for screw fixation of the right hip fracture. She understands that she may have screw cutout or hardware failure which would necessitate conversion to a hemiarthroplasty.
[2018-11-19] MEDS ORDERED: ceFAZolin 1 GM in Dextrose (*) 0 GM/0 ML BAG IVPB ONE (13:57)
[2018-11-19] MEDS ORDERED: Succinylcholine* 20 MG/ML 10 ML VIAL ONE (14:12)
[2018-11-19] MEDS ORDERED: Phenylephrine 10 MG/ML VIAL* 1 ML VIAL ONE (14:13)
[2018-11-19] MEDS ORDERED: fentaNYL* 50 MCG/ML 2 ML VIAL (100 MCG VIAL) ONE ×2 (14:26→14:27)
[2018-11-19] MEDS ORDERED: fentaNYL* 50 MCG/ML 2 ML VIAL (100 MCG VIAL) IV PRN (15:13)
[2018-11-19] MEDS ORDERED: Acetaminophen IV 1GM/100ML * 100 ML ONE (15:13)
[2018-11-19] MEDS ORDERED: Metoclopramide IV* 5 MG/ML 2 ML VIAL IV PRN (15:13)
[2018-11-19] MEDS ORDERED: Naloxone* 0.4 MG/ML 1 ML VIAL IV PRN (15:13)
[2018-11-19] MEDS ORDERED: Ketorolac INJ* 30 MG/ML 1 ML VIAL ONE (15:14)
[2018-11-19] MEDS ORDERED: Ondansetron INJ* 2 MG/ML VIAL ONE (15:46)
[2018-11-19] MEDS: BuPROPion XL* 150 MG TAB.XL PO SCH (17:12)
[2018-11-19] MEDS: Brimonidine P 0.1%(NF) 1 DROP BTL BOTH EYES SCH (17:13)
--- NOTE | 2018-11-19 18:28 | PN ---
Subjective Date of Service: 11/19/18 Interval History: VS: 97% on 3L NC; HTN trending down Labs: anemia, elevated Cr (trending down) Pt seen post-op, and states that she is in pain, but is unable to assign a number. She also states that she is hungry. She has niece and family friend at bedside. Niece states she is health care proxy; she states that they prefer [facility] for rehabilitation after discharge. Pt denies CP, SOB, abd pain, n/v/ d/c, pain in calves. Objective Active Medications: Acetaminophen (Tylenol Tab*) 650 mg PO Q6H ELLIOT Albuterol/Ipratropium (Duoneb (Albuterol 2.5 Mg/Ipratropium 0.5 Mg)) 1 neb INH Q6H PRN Brimonidine Tartrate (Alphagan P 0.1% (Nf)) 2 drop BOTH EYES QPM ELLIOT Bupropion HCl (Wellbutrin Xl *) 150 mg PO DAILY ELLIOT Docusate Sodium (Colace Cap*) 100 mg PO DAILY PRN Enoxaparin Sodium (Lovenox(*)) 30 mg SUBCUT DAILY ELLIOT Fentanyl Citrate (Fentanyl*) 25 mcg IV Q5M PRN Hydralazine HCl (Apresoline Iv*) 5 mg IV SLOW PU Q6H PRN Cefazolin Sodium/Dextrose (Kefzol 1 Gm In Dextrose Duplex (*)) 1 gm in 50 mls @ 200 mls/hr IVPB Q8H ELLIOT Lorazepam (Ativan Tab(*)) 0.5 mg PO DAILY ELLIOT Lorazepam (Ativan Tab(*)) 0.5 mg PO Q8H PRN Magnesium Hydroxide (Milk Of Magnesia Liq*) 30 ml PO Q6H PRN Metoclopramide HCl (Reglan Iv*) 5 mg IV ONCE PRN Morphine Sulfate (Morphine Oral Concentrate*) 5 mg PO Q4H PRN Naloxone HCl (Narcan*) 0.08 mg IV Q2M PRN Oxycodone HCl (Roxycodone Tab*) 5 mg PO Q6H PRN Potassium Citrate (Urocit-K 10 (Nf)) 10 meq PO DAILY ELLIOT Senna (Senokot Tab*) 1 tab PO DAILY ELLIOT Vital Signs: Temp Pulse Resp BP Pulse Ox 98.2 F 80 33 131/83 97 11/19/18 16:04 11/19/18 17:15 11/19/18 17:15 11/19/18 17:15 11/19/18 17:15 Oxygen Devices in Use Now: Nasal Cannula Appearance: Pt laying in bed with head and LE elevated. She appeaers somewhat uncomfortable, but is in no acute distress. She responds appropriately and is cooperative. Eyes: No Scleral Icterus, PERRLA Ears/Nose/Mouth/Throat: NL Teeth, Lips, Gums, Mucous Membranes Moist Neck: NL Appearance and Movements; NL JVP, Trachea Midline Respiratory: Symmetrical Chest Expansion and Respiratory Effort, Clear to Auscultation, - - Kyphosis and chest wall deformity. CTAB Cardiovascular: NL Sounds; No Murmurs; No JVD, RRR, No Edema Abdominal: NL Sounds; No Tenderness; No Distention, No Hepatosplenomegaly Extremities: No Edema, No Clubbing, Cyanosis, - - R hip dressing CDI. Dorsalis pedis pulses palpable b/l; sensation intact b/l LE Neurological: Alert and Oriented x 3 Result Diagrams: 11/19/18 05:43 11/19/18 05:43 Microbiology and Other Data: Microbiology 11/18/18 00:32 Nasal Screen MRSA (PCR) - Final Nasal Mrsa Not Detected Assess/Plan/Problems-Billing Assessment: 88 yo female with a PMH of childhood polio, COPD on 2L QHS, severe osteoarthritis, HTN, CKD stage 2/3, anxiety on benzodiazepines, chronic pain on opioids who had a mechanical fall who suffered a right hip fracture. Post-op day 0 11/19. - Patient Problems (1) Status post-operative repair of hip fracture Comment: -Management per ortho team (2) Hypertension Comment: -Slightly elevated, may be due to pain -Will assess need for continuation of norvasc in a.m. (3) Chronic back pain Comment: - hold home dose oxycontin, continue oxycodone prn for hip fx (4) COPD (chronic obstructive pulmonary disease) Comment: - does not appear to be in exacerbation. O2 prn - nebs prn (5) Depression Comment: with anxiety continue wellbutrin and ativan (6) DVT prophylaxis Comment: -Lovenox SQ (7) DNR (do not resuscitate) Status and Disposition: inpatient with hip fx. patient will likely require subacute rehab - she would like to go to [facility].
[2018-11-19] MEDS: oxyCODONE TAB* 5 MG TAB PO PRN (18:47)
--- NOTE | 2018-11-19 21:56 | OP ---
DATE OF OPERATION: 11/19/18 - ROOM #446 DATE OF : 32 SURGEON: Rodolfo Mcduffie MD. DIRECTOR OF INSTRUCTION: GERMAN Griffin. ANESTHESIOLOGIST: Dr. Jamil. ANESTHESIA: General. PRE-OP DIAGNOSIS: Right valgus impacted femoral neck fracture. POST-OP DIAGNOSIS: Right valgus impacted femoral neck fracture. OPERATIVE PROCEDURE: Percutaneous screw fixation of right valgus impacted femoral neck fracture. INDICATIONS: Ashli is 88 years old. She had a fall. She walked on the hip , although it was painful for a period of time until she was brought to the emergency room where x-ray showed a valgus impacted right femoral neck fracture. She was admitted and placed on bedrest, now presents to the operating room for fixation of the fracture. ESTIMATED BLOOD LOSS: 25 mL. COMPLICATIONS: None. FINDINGS: See above and below. DESCRIPTION OF PROCEDURE: sAhli was seen in the preoperative holding area. The correct site, side, and procedure were identified. We came back to the operating room where anesthesia was induced. She was gently positioned on the fracture table. C-arm fluoroscopy was brought in and the alignment of the fracture was confirmed to be acceptable for percutaneous screw fixation. The leg was then prescrubbed and then prepped and draped in the usual fashion. I marked out the trajectory of my screws starting just superior to the lesser trochanter. I then made a skin incision with a 10 blade. The tensor was split as well. I placed my first inferior guidewire for a 7.3 mm Synthes cannulated screw; and placing it for my starting place on mini C-arm fluoroscopy, this was advanced up into the femoral head. I then measured. I drilled only the lateral cortex and then placed an 80 mm, 7.3 mm cannulated screw with a washer. I then placed my more proximal anterior screw in a similar fashion. This was an 85 mm screw. Lastly, I placed my posterior and proximal screw. This was an 80 mm and was placed in the same manner. All screws went in well. I had initially thought I might use an 85 mm screw for my most inferior screw, but I changed that to an 80 mm screw, but that decision was made prior to fully advancing the screw. There was excellent purchase with all of the screws. The wound was irrigated out. The tensor was closed with 2- 0 Vicryl suture. The subcutaneous tissue was reapproximated with 2-0 Vicryl suture. The skin was closed with yordy. I had injected 0.25% Marcaine with epinephrine at the beginning of the surgery and there was really minimal blood loss throughout the procedure. The wound was dressed with Xeroform, 4x4s, and foam tape. The drape was then taken down. I then rebuilt the fracture table and took the leg out of traction. I performed AP and frog leg lateral C-arm fluoroscopy to confirm the alignment. We went live and I took the hip through a full range of motion, and none of the screws appeared to be penetrating the joint. The alignment was good. We therefore woke her up and she was transferred to the recovery room in stable condition. [id number]/[facility] #: [id number] MICHAEL
[2018-11-19] MEDS: ceFAZolin 1 GM* X 3 DOSES POST-OP Q8H (AddVan) IVPB SCH ×2 (22:06)
[2018-11-19] MEDS ORDERED: ceFAZolin 1 GM in Dextrose (*) 1 GM/50 ML BAG IVPB SCH (22:30)
[2018-11-20] MEDS: oxyCODONE TAB* 5 MG TAB PO PRN ×2 (03:37→10:06)
[2018-11-20] MEDS: Acetaminophen TAB* 325 MG PO SCH ×4 (03:58→23:33)
[2018-11-20] MEDS: ceFAZolin 1 GM* X 3 DOSES POST-OP Q8H (AddVan) IVPB SCH ×4 (06:03→15:10)
[2018-11-20 06:05] LABS: ABS Basophils 0 10^3/ul (0-0.2); ABS Eosinophils 0.4 10^3/ul (0-0.6); ABS Lymphocytes 0.6 10^3/ul (1.0-4.8); ABS Monocytes 0.8 10^3/ul (0-0.8); ABS Neutrophils 6.7 10^3/ul (1.5-7.7); ABS Nucleated RBC 0 10^3/ul; Eosinophil % 4.8 %; Hematocrit 32 % (33-41); Hemoglobin 10.8 g/dL (12.0-16.0); Lymphocyte % 7.2 %; Mean Corpuscular HGB Conc 34 g/dL (31-36); Mean Corpuscular Hemoglobin 32 pg (27-31); Mean Corpuscular Volume 95 fL (80-97); Mean Platelet Volume 9.6 fL (7.4-10.4); Nucleated Red Blood Cells % 0; Platelet Count 119 10^3/uL (150-450); Red Blood Count 3.33 10^6 /uL (3.70-4.87); Red Cell Distribution Width 15 % (10.5-15); White Blood Count 8.6 10^3/uL (3.5-10.8)
[2018-11-20] MEDS: LORazepam TAB(*) 0.5 MG PO SCH (08:03)
[2018-11-20] MEDS: Senna TAB PO SCH (08:04)
[2018-11-20] MEDS: BuPROPion XL* 150 MG TAB.XL PO SCH (08:04)
[2018-11-20] MEDS: Enoxaparin(*) 30 MG/0.3 ML SYR SUBCUT SCH (08:04)
[2018-11-20] MEDS ORDERED: amLODIPine TAB* 5 MG PO SCH (09:00)
[2018-11-20] MEDS: PTO:Potassium Citrate (NF) 10 MEQ TAB PO SCH (10:06)
[2018-11-20] MEDS: Docusate CAP* 100 MG PO PRN (10:06)
[2018-11-20] MEDS: BRIMONIDINE 0.2% BOTH EYES SCH ×2 (10:06→21:21)
--- NOTE | 2018-11-20 11:52 | PN ---
Progress Note - Progress Note Date of Service: 11/20/18 SOAP: Subjective: []Pt seen OOB in chair. She feels well, right hip pain is well controlled. Denies CP, SOB, dizziness, nausea. Objective: []General: Appears well, NAD RLE: Dressing CDI, no erythema. Thigh is soft, DF/PF intact, DP2+, sensation intact to light touch distally Calves supple and nontender without erythema, edema or palpable cords Assessment: []Right valgus impacted femoral neck fracture. Plan: WBAT PT/OT lovenox DVT prophy x 30 days post op Vital Signs Temp 97.8 F 11/20/18 07:36 Pulse 86 11/20/18 07:36 Resp 19 11/20/18 10:06 BP 154/66 11/20/18 07:36 Pulse Ox 97 11/20/18 07:36 Intake & Output 11/19/18 11/20/18 11/20/18 18:59 06:59 18:59 Intake Total 1190 60 720 Output Total 400 Balance 1190 -340 720 Intake: IV Fluids 950 60 LR 900 NS 50ML, Cefazolin 2G 50 cefazolin 60 Oral 240 0 720 Output: [place] 400 Laboratory Last Values WBC 8.6 10^3/uL (3.5-10.8) 11/20/18 05:41 RBC 3.33 10^6 /uL (3.70-4.87) L 11/20/18 05:41 Hgb 10.8 g/dL (12.0-16.0) L 11/20/18 05:41 Hct 32 % (33-41) L 11/20/18 05:41 MCV 95 fL (80-97) 11/20/18 05:41 MCH 32 pg (27-31) H 11/20/18 05:41 MCHC 34 g/dL (31-36) 11/20/18 05:41 RDW 15 % (10.5-15) 11/20/18 05:41 Plt Count 119 10^3/uL (150-450) L 11/20/18 05:41 MPV 9.6 fL (7.4-10.4) 11/20/18 05:41 Neut % (Auto) 78.5 % 11/20/18 05:41 Lymph % (Auto) 7.2 % 11/20/18 05:41 Daniels % (Auto) 9.3 % 11/20/18 05:41 Eos % (Auto) 4.8 % 11/20/18 05:41 Baso % (Auto) 0.2 % 11/20/18 05:41 Absolute Neuts (auto) 6.7 10^3/ul (1.5-7.7) 11/20/18 05:41 Absolute Lymphs (auto) 0.6 10^3/ul (1.0-4.8) L 11/20/18 05:41 Absolute Monos (auto) 0.8 10^3/ul (0-0.8) 11/20/18 05:41 Absolute Eos (auto) 0.4 10^3/ul (0-0.6) 11/20/18 05:41 Absolute Basos (auto) 0 10^3/ul (0-0.2) 11/20/18 05:41 Absolute Nucleated RBC 0 10^3/ul 11/20/18 05:41 Nucleated RBC % 0 11/20/18 05:41 INR (Anticoag Therapy) 1.05 (0.82-1.09) 11/18/18 07:15 APTT 28.3 seconds (26.0-36.3) 11/17/18 19:55 Sodium 142 mmol/L (135-145) 11/19/18 05:43 Potassium 3.6 mmol/L (3.5-5.0) 11/19/18 05:43 Chloride 105 mmol/L (101-111) 11/19/18 05:43 Carbon Dioxide 34 mmol/L (22-32) H 11/19/18 05:43 Anion Gap 3 mmol/L (2-11) 11/19/18 05:43 BUN 30 mg/dL (6-24) H 11/19/18 05:43 Creatinine 1.21 mg/dL (0.51-0.95) H 11/19/18 05:43 Est GFR ( Amer) 50.9 (>60) 11/19/18 05:43 Est GFR (Non-Af Amer) 42.1 (>60) 11/19/18 05:43 BUN/Creatinine Ratio 24.8 (8-20) H 11/19/18 05:43 Glucose 97 mg/dL (70-100) 11/19/18 05:43 Lactic Acid 0.9 mmol/L (0.5-2.0) 11/17/18 19:55 Calcium 9.8 mg/dL (8.6-10.3) 11/19/18 05:43 Total Bilirubin 0.60 mg/dL (0.2-1.0) 11/17/18 19:55 AST 23 U/L (13-39) 11/17/18 19:55 ALT 24 U/L (7-52) 11/17/18 19:55 Alkaline Phosphatase 47 U/L (34-104) 11/17/18 19:55 B-Natriuretic Peptide 49 pg/mL (<=100) 11/20/18 05:41 Total Protein 6.6 g/dL (6.4-8.9) 11/17/18 19:55 Albumin 4.5 g/dL (3.2-5.2) 11/17/18 19:55 Globulin 2.1 g/dL (2-4) 11/17/18 19:55 Albumin/Globulin Ratio 2.1 (1-3) 11/17/18 19:55 TSH 2.12 mcIU/mL (0.34-5.60) 11/17/18 19:55 Urine Color Yellow 11/18/18 00:39 Urine Appearance Cloudy 11/18/18 00:39 Urine pH 8.0 (5-9) 11/18/18 00:39 Ur Specific [place] 1.014 (1.010-1.030) 11/18/18 00:39 Urine Protein Negative (Negative) 11/18/18 00:39 Urine Ketones Trace (Negative) A 11/18/18 00:39 Urine Blood Negative (Negative) 11/18/18 00:39 Urine Nitrate Negative (Negative) 11/18/18 00:39 Urine Bilirubin Negative (Negative) 11/18/18 00:39 Urine Urobilinogen Negative (Negative) 11/18/18 00:39 Ur Leukocyte Esterase Negative (Negative) 11/18/18 00:39 Urine Glucose Negative (Negative) 11/18/18 00:39 Urine Ascorbic Acid * (Negative) A 11/18/18 00:39 Blood Type O Positive 11/17/18 19:55 Antibody Screen Negative 11/17/18 19:55
--- NOTE | 2018-11-20 16:21 | PN ---
Subjective Date of Service: 11/20/18 Interval History: VS: HTN Lab: anemia- trending up Pt states that she is feeling OK. She currently denies hip pain. She has not been up with PT yet, but is concerned about getting up and walking. She states that she has been up to the bathroom and is afraid to put weight on the R leg out of concern for pain. She admits to SOB, but adds that she has SOB at baseline, and feels that some of this has to do with anxiety. It is noted that she is on 1 L NC, down from 3L NC this morning. She has O2 at home which she uses at night. She denies CP, cough, fever, abd pain, n/v/d/c, pain in extremities. Objective Active Medications: Acetaminophen (Tylenol Tab*) 650 mg PO Q6H ELLIOT Albuterol/Ipratropium (Duoneb (Albuterol 2.5 Mg/Ipratropium 0.5 Mg)) 1 neb INH Q6H PRN Amlodipine Besylate (Norvasc Tab*) 5 mg PO DAILY ELLIOT Bupropion HCl (Wellbutrin Xl *) 150 mg PO DAILY ELLIOT Docusate Sodium (Colace Cap*) 100 mg PO DAILY PRN Enoxaparin Sodium (Lovenox(*)) 30 mg SUBCUT DAILY ELLIOT Hydralazine HCl (Apresoline Iv*) 5 mg IV SLOW PU Q6H PRN Lorazepam (Ativan Tab(*)) 0.5 mg PO DAILY ELLIOT Lorazepam (Ativan Tab(*)) 0.5 mg PO Q8H PRN Magnesium Hydroxide (Milk Of Magnesia Liq*) 30 ml PO Q6H PRN Morphine Sulfate (Morphine Oral Concentrate*) 5 mg PO Q4H PRN Pto:* (Alphagan P 0. (2% * 1 Drop)) 1 drop BOTH EYES BID ELLIOT Oxycodone HCl (Roxycodone Tab*) 5 mg PO Q6H PRN Potassium Citrate (Urocit-K 10 (Nf)) 10 meq PO DAILY ELLIOT Senna (Senokot Tab*) 1 tab PO DAILY ELLIOT Vital Signs: Temp Pulse Resp BP Pulse Ox 98.2 F 90 18 161/80 90 11/20/18 15:58 11/20/18 15:58 11/20/18 15:58 11/20/18 15:58 11/20/18 15:58 Oxygen Devices in Use Now: Nasal Cannula Appearance: Pt is a thin elderly lady who is sitting in bed with HOB elevated, SCDs in place. She appears well and is in no acute distress. Eyes: No Scleral Icterus, PERRLA Ears/Nose/Mouth/Throat: NL Teeth, Lips, Gums, Clear Oropharnyx, Mucous Membranes Moist Neck: NL Appearance and Movements; NL JVP, Trachea Midline Respiratory: Symmetrical Chest Expansion and Respiratory Effort, Clear to Auscultation, - - Chest wall deformity, kyphosis Cardiovascular: NL Sounds; No Murmurs; No JVD, RRR, No Edema Abdominal: NL Sounds; No Tenderness; No Distention, No Hepatosplenomegaly Extremities: No Edema, No Clubbing, Cyanosis, - - RLE dressing CDI Neurological: Alert and Oriented x 3 Result Diagrams: 11/20/18 05:41 11/19/18 05:43 Microbiology and Other Data: Microbiology 11/18/18 00:32 Nasal Screen MRSA (PCR) - Final Nasal Mrsa Not Detected Assess/Plan/Problems-Billing Assessment: 88 yo female with a PMH of childhood polio, COPD on 2L QHS, severe osteoarthritis, HTN, CKD stage 2/3, anxiety on benzodiazepines, chronic pain on opioids who had a mechanical fall who suffered a right hip fracture. Post-op day 0 11/19. - Patient Problems (1) Status post-operative repair of hip fracture Comment: -Management per ortho team -PT, OT, and PMRU referral ordered (2) Hypertension Comment: -Remains elevated today -Add Norvasc 5 PO daily (3) Chronic back pain Comment: - hold home dose oxycontin, continue oxycodone prn for hip fx (4) COPD (chronic obstructive pulmonary disease) Comment: - Lungs CTAB, does not appear to be in exacerbation - Continue O2 prn, currently requiring 1L - nebs prn (5) Depression Comment: with anxiety continue wellbutrin and ativan (6) DVT prophylaxis Comment: -Lovenox SQ (7) DNR (do not resuscitate) Status and Disposition: Inpatient with hip fx. patient will likely require subacute rehab - she would like to go to [facility] or [facility].
[2018-11-20] MEDS: LORazepam TAB(*) 0.5 MG PO PRN (21:20)
[2018-11-20] MEDS: Albuterol/Ipratropium NEB.SOL* Albuterol 2.5 MG/Ipratropium 0.5 MG 3 ML INH PRN (23:28)
[2018-11-21] MEDS: Acetaminophen TAB* 325 MG PO SCH ×3 (05:28→19:39)
[2018-11-21] MEDS: hydrALAZINE IV* 20 MG/ML VIAL IV SLOW PU PRN (07:39)
[2018-11-21] MEDS: Enoxaparin(*) 30 MG/0.3 ML SYR SUBCUT SCH (09:22)
[2018-11-21] MEDS: LORazepam TAB(*) 0.5 MG PO SCH (09:22)
[2018-11-21] MEDS: BuPROPion XL* 150 MG TAB.XL PO SCH (09:23)
[2018-11-21] MEDS: PTO:Potassium Citrate (NF) 10 MEQ TAB PO SCH (09:23)
[2018-11-21] MEDS: Senna TAB PO SCH (09:23)
[2018-11-21] MEDS: BRIMONIDINE 0.2% BOTH EYES SCH ×2 (09:24→21:00)
[2018-11-21] MEDS ORDERED: hydrALAZINE IV* 20 MG/ML VIAL IV SLOW PU PRN (10:15)
--- NOTE | 2018-11-21 11:21 | PN ---
Progress Note - Progress Note Date of Service: 11/21/18 SOAP: Subjective: []Pt seen at bedside. Denies CP, SOB, dizziness or nausea. Right hip pain is well controlled. Objective: []General: Appears well, NAD RLE: Dressing changed, incision CDI, no erythema. Thigh is soft, DF/PF intact, DP2+, sensation intact to light touch distally Calves supple and nontender without erythema, edema or palpable cords Assessment: []Right valgus impacted femoral neck fracture. Plan: WBAT PT/OT lovenox DVT prophy x 30 days post op PMRU referral in, awaiting insurance approval Vital Signs Temp 98.4 F 11/21/18 07:29 Pulse 87 11/21/18 09:55 Resp 18 11/21/18 09:22 BP 100/43 11/21/18 09:55 Pulse Ox 97 11/21/18 09:55 Intake & Output 11/20/18 11/21/18 11/21/18 18:59 06:59 18:59 Intake Total 840 530 230 Output Total 275 450 75 Balance 565 80 155 Intake: Oral 840 530 230 Output: Urine 275 450 75 Other: # Bowel Movements 0 Laboratory Last Values WBC 8.6 10^3/uL (3.5-10.8) 11/20/18 05:41 RBC 3.33 10^6 /uL (3.70-4.87) L 11/20/18 05:41 Hgb 10.8 g/dL (12.0-16.0) L 11/20/18 05:41 Hct 32 % (33-41) L 11/20/18 05:41 MCV 95 fL (80-97) 11/20/18 05:41 MCH 32 pg (27-31) H 11/20/18 05:41 MCHC 34 g/dL (31-36) 11/20/18 05:41 RDW 15 % (10.5-15) 11/20/18 05:41 Plt Count 119 10^3/uL (150-450) L 11/20/18 05:41 MPV 9.6 fL (7.4-10.4) 11/20/18 05:41 Neut % (Auto) 78.5 % 11/20/18 05:41 Lymph % (Auto) 7.2 % 11/20/18 05:41 [place] % (Auto) 9.3 % 11/20/18 05:41 Eos % (Auto) 4.8 % 11/20/18 05:41 Baso % (Auto) 0.2 % 11/20/18 05:41 Absolute Neuts (auto) 6.7 10^3/ul (1.5-7.7) 11/20/18 05:41 Absolute Lymphs (auto) 0.6 10^3/ul (1.0-4.8) L 11/20/18 05:41 Absolute Monos (auto) 0.8 10^3/ul (0-0.8) 11/20/18 05:41 Absolute Eos (auto) 0.4 10^3/ul (0-0.6) 11/20/18 05:41 Absolute Basos (auto) 0 10^3/ul (0-0.2) 11/20/18 05:41 Absolute Nucleated RBC 0 10^3/ul 11/20/18 05:41 Nucleated RBC % 0 11/20/18 05:41 INR (Anticoag Therapy) 1.05 (0.82-1.09) 11/18/18 07:15 APTT 28.3 seconds (26.0-36.3) 11/17/18 19:55 Sodium 142 mmol/L (135-145) 11/19/18 05:43 Potassium 3.6 mmol/L (3.5-5.0) 11/19/18 05:43 Chloride 105 mmol/L (101-111) 11/19/18 05:43 Carbon Dioxide 34 mmol/L (22-32) H 11/19/18 05:43 Anion Gap 3 mmol/L (2-11) 11/19/18 05:43 BUN 30 mg/dL (6-24) H 11/19/18 05:43 Creatinine 1.21 mg/dL (0.51-0.95) H 11/19/18 05:43 Est GFR ( Amer) 50.9 (>60) 11/19/18 05:43 Est GFR (Non-Af Amer) 42.1 (>60) 11/19/18 05:43 BUN/Creatinine Ratio 24.8 (8-20) H 11/19/18 05:43 Glucose 97 mg/dL (70-100) 11/19/18 05:43 Lactic Acid 0.9 mmol/L (0.5-2.0) 11/17/18 19:55 Calcium 9.8 mg/dL (8.6-10.3) 11/19/18 05:43 Total Bilirubin 0.60 mg/dL (0.2-1.0) 11/17/18 19:55 AST 23 U/L (13-39) 11/17/18 19:55 ALT 24 U/L (7-52) 11/17/18 19:55 Alkaline Phosphatase 47 U/L (34-104) 11/17/18 19:55 B-Natriuretic Peptide 49 pg/mL (<=100) 11/20/18 05:41 Total Protein 6.6 g/dL (6.4-8.9) 11/17/18 19:55 Albumin 4.5 g/dL (3.2-5.2) 11/17/18 19:55 Globulin 2.1 g/dL (2-4) 11/17/18 19:55 Albumin/Globulin Ratio 2.1 (1-3) 11/17/18 19:55 TSH 2.12 mcIU/mL (0.34-5.60) 11/17/18 19:55 Urine Color Yellow 11/18/18 00:39 Urine Appearance Cloudy 11/18/18 00:39 Urine pH 8.0 (5-9) 11/18/18 00:39 Ur Specific [place] 1.014 (1.010-1.030) 11/18/18 00:39 Urine Protein Negative (Negative) 11/18/18 00:39 Urine Ketones Trace (Negative) A 11/18/18 00:39 Urine Blood Negative (Negative) 11/18/18 00:39 Urine Nitrate Negative (Negative) 11/18/18 00:39 Urine Bilirubin Negative (Negative) 11/18/18 00:39 Urine Urobilinogen Negative (Negative) 11/18/18 00:39 Ur Leukocyte Esterase Negative (Negative) 11/18/18 00:39 Urine Glucose Negative (Negative) 11/18/18 00:39 Urine Ascorbic Acid * (Negative) A 11/18/18 00:39 Blood Type O Positive 11/17/18 19:55 Antibody Screen Negative 11/17/18 19:55
--- NOTE | 2018-11-21 11:30 | PN ---
Subjective Date of Service: 11/21/18 Interval History: VS: Controlled during day; HTN overnight Lab: anemia- likely post-op and trending up; elevated Cr- baseline Pt states that she is breathing better today and reports less anxiety. She states that she has been up to the chair, but is nervous about standing on the post-operative hip. Currently, she denies no hip pain; does report some hip pain with standing. She reports no BM recently. She is eating and drinking well. Objective Active Medications: Acetaminophen (Tylenol Tab*) 650 mg PO Q6H ELLIOT Albuterol/Ipratropium (Duoneb (Albuterol 2.5 Mg/Ipratropium 0.5 Mg)) 1 neb INH Q6H PRN Amlodipine Besylate (Norvasc Tab*) 5 mg PO DAILY ELLIOT Bupropion HCl (Wellbutrin Xl *) 150 mg PO DAILY ELLIOT Docusate Sodium (Colace Cap*) 100 mg PO DAILY PRN Enoxaparin Sodium (Lovenox(*)) 30 mg SUBCUT DAILY ELLIOT Hydralazine HCl (Apresoline Iv*) 5 mg IV SLOW PU Q6H PRN Lorazepam (Ativan Tab(*)) 0.5 mg PO DAILY ELLIOT Lorazepam (Ativan Tab(*)) 0.5 mg PO Q8H PRN Magnesium Hydroxide (Milk Of Magnesia Liq*) 30 ml PO Q6H PRN Morphine Sulfate (Morphine Oral Concentrate*) 5 mg PO Q4H PRN Pto:* (Alphagan P 0. (2% * 1 Drop)) 1 drop BOTH EYES BID ELLIOT Oxycodone HCl (Roxycodone Tab*) 5 mg PO Q6H PRN Potassium Citrate (Urocit-K 10 (Nf)) 10 meq PO DAILY ELLIOT Senna (Senokot Tab*) 1 tab PO DAILY [facility] Vital Signs: Temp Pulse Resp BP Pulse Ox 97.7 F 86 18 128/59 96 11/21/18 15:42 11/21/18 15:42 11/21/18 15:42 11/21/18 15:42 11/21/18 15:42 Oxygen Devices in Use Now: Nasal Cannula - 2L Appearance: Pt is elderly, frail-appearing woman sitting up in bed. She is in no acute distress. Eyes: No Scleral Icterus, PERRLA Ears/Nose/Mouth/Throat: NL Teeth, Lips, Gums, Mucous Membranes Moist Neck: NL Appearance and Movements; NL JVP, Trachea Midline Respiratory: Symmetrical Chest Expansion and Respiratory Effort, Clear to Auscultation, - - Kyphosis, anterior chest wall abnormality. Cardiovascular: NL Sounds; No Murmurs; No JVD, RRR, No Edema Abdominal: NL Sounds; No Tenderness; No Distention, No Hepatosplenomegaly Extremities: No Edema, No Clubbing, Cyanosis, - - R hip dressing CDI; SCDs in place Neurological: Alert and Oriented x 3, - - Sensation, distal pulses intact. Moves all extremities. Result Diagrams: 11/20/18 05:41 11/19/18 05:43 Microbiology and Other Data: Microbiology 11/18/18 00:32 Nasal Screen MRSA (PCR) - Final Nasal Mrsa Not Detected Assess/Plan/Problems-Billing Assessment: 88 yo female with a PMH of childhood polio, COPD on 2L QHS, severe osteoarthritis, HTN, CKD stage 2/3, anxiety on benzodiazepines, chronic pain on opioids who had a mechanical fall who suffered a right hip fracture. Post-op day 0 11/19. - Patient Problems (1) Status post-operative repair of hip fracture Comment: -Management per ortho team -PT, OT, and PMRU referral ordered -Pt and family request d/c to [facility]; likely d/c in a.m. (2) Hypertension Comment: -BP elevated overnight, but WNL during day -No norvasc taken today; will continue to hold and assess for need for outpatient rx on d/c tomorrow (3) Chronic back pain Comment: - hold home dose oxycontin, continue oxycodone prn for hip fx (4) COPD (chronic obstructive pulmonary disease) Comment: - Lungs CTAB, does not appear to be in exacerbation - Continue O2 prn, currently requiring 1L - nebs prn (5) Depression Comment: with anxiety continue wellbutrin and ativan (6) DVT prophylaxis Comment: -Lovenox SQ (7) DNR (do not resuscitate) Status and Disposition: Inpatient with hip fx. Likely d/c to [facility] for JACK 11/22.
[2018-11-21] MEDS: oxyCODONE TAB* 5 MG TAB PO PRN (12:54)
[2018-11-22] MEDS: Acetaminophen TAB* 325 MG PO SCH ×2 (01:02→06:37)
[2018-11-22] MEDS: LORazepam TAB(*) 0.5 MG PO PRN (04:12)
[2018-11-22] MEDS: PTO:Potassium Citrate (NF) 10 MEQ TAB PO SCH (07:45)
[2018-11-22] MEDS: BuPROPion XL* 150 MG TAB.XL PO SCH (07:45)
[2018-11-22] MEDS: BRIMONIDINE 0.2% BOTH EYES SCH (07:45)
[2018-11-22] MEDS: Senna TAB PO SCH (07:46)
[2018-11-22 08:00] LABS: Hematocrit 31 % (35-47); Hemoglobin 10.2 g/dL (12.0-16.0)
[2018-11-22 08:48] VITALS: BP 148/56
[2018-11-22] MEDS: LORazepam TAB(*) 0.5 MG PO SCH (08:53)
[2018-11-22] MEDS: Enoxaparin(*) 30 MG/0.3 ML SYR SUBCUT SCH (08:53)
[2018-11-22] MEDS ORDERED: amLODIPine TAB* 5 MG PO SCH (09:00)
--- NOTE | 2018-11-22 10:19 | DS ---
ADDENDUM NOW INCLUDED ON THIS REPORT CC: Og Powell MD; Rodolfo Mcduffie MD * DISCHARGE SUMMARY: DATE OF ADMISSION: 11/17/18 DATE OF DISCHARGE: 11/22/18 PRIMARY CARE PROVIDER: Og Powell MD ORTHOPEDIC SURGEON: Rodolfo Mcduffie MD ATTENDING PHYSICIAN: Belinda Blanco DO * (DICTATED BY GERMAN CHANG ) PRIMARY DIAGNOSIS: Right femoral neck fracture with repair on 11/19/18. SECONDARY DIAGNOSES: 1. Hypertension. 2. Chronic kidney disease, stage 2-3. 3. Chronic obstructive pulmonary disease. 4. Severe osteoporosis, on chronic opioid pain medications. 5. Childhood history of polio, severe kyphosis, p.r.n. oxygen. 6. Anxiety, on benzodiazepines. DISCHARGE MEDICATIONS: Home medications: 1. OxyContin 10 mg 1 tab p.o. daily. 2. Calcium 600 mg p.o. daily. 3. Prolia 60 mg subcu every 6 months. 4. Bupropion XL 150 mg p.o. daily. 5. Lorazepam 0.5 mg p.o. daily. 6. Potassium citrate 10 mEq p.o. daily. 7. Alphagan P 0.2% 1 drop to both eyes b.i.d. Discontinued home medications: 1. Amlodipine 5, patient states she is on this at home, although it is not on her med list. HISTORY OF PRESENT ILLNESS/HOSPITAL COURSE: Ms. Vaca is an 88-year-old female with a past medical history of severe osteoarthritis requiring chronic opiates, chronic kidney disease, hypertension and osteoporosis, who presented to the ER on 11/17/18 after a fall at her home at [facility]. She states she lost her footing and fell onto her right hip and shoulder. There was no head injury or loss of consciousness. Typically the patient ambulates with a walker and is independent other than driving. She presented to due pain in the right leg after the fall. Ambulance brought her to the ER where she was evaluated and admitted after having been found to have a right femoral neck fracture. Orthopedics were consulted regarding fracture and the patient was planned for surgical repair on 11/19/18. Surgical repair was performed and the patient recovered relatively well from surgery. She was noted to have an elevated blood pressure in the beginning of her stay. Postoperatively she was treated with Norvasc 5 x approximately 2 days. She then was noted to have a normalized blood pressure that only elevated overnight. This was thought to be due to the patient being woken up for blood pressure readings. Because of this amlodipine was discontinued on discharge. Preoperatively the patient was noted to have a slightly decreased hemoglobin. This dropped a very small amount postoperatively which was likely to blood loss during the operation. The patient's hemoglobin remained stable throughout her stay. The patient's creatinine was elevated upon arrival, but trended downwards to her baseline within days of admission. On the day of discharge the patient states she is feeling relatively well. She states that she walked with physical therapy yesterday and reported no pain. She does report some aching in the right hip today, although this is mild. She reports that she is urinating okay and has had a bowel movement today. She continues to use 1L of oxygen. She does admit to slight shortness of breath, although it has decreased over the last couple of days and is trending downwards towards her baseline. She denies chest pain, abdominal pain, nausea, vomiting, diarrhea, constipation, pain in the calves or extremities. The patient states that she has an occasional stuffy nose and feels that she has some post nasal drainage that is causing some throat irritation. She denies any other complaints at this time. The patient will be discharged to [facility] for physical therapy. ACTIVITY: Weightbearing as tolerated. DIET: Heart healthy. MEDICATIONS: As above. EDUCATION: 1. Followup with primary care provider in 4-7 days. 2. Followup with Orthopedics, Dr. Mcduffie, in approximately 1 week. Staple removal 7 days postoperatively. 3. Blood pressure elevated overnight, but normalized during the day. Due to this amlodipine 5 mg daily has been discontinued. Please reevaluate for need for restart with primary care provider. 4. Start Fluticasone nasal spray daily for postnasal drainage. Follow up with primary care provider for future management. 5. Return to the ER or nearest hospital if surgical site becomes red, swollen, painful or is draining, or there are any other signs of infection. 6. Return to the ER or nearest hospital if you experience any worsening of symptoms, chest discomfort, shortness of breath, dizziness, lightheadedness, loss of consciousness, high fevers, chills, night sweats, or any other worrisome signs or symptoms. This is a summarized report of a complex medical history and hospital stay. For further details, please see the entire medical record. TIME SPENT: Approximately 35 minutes was spent on this discharge, greater than half that time was spent [id number] with the patient discussing discharge plans and instructions. GERMAN CHANG ADDENDUM: Ms. Vaca is stable for discharge. PHYSICAL EXAMINATION: Vital Signs: Temperature 97.7 oral, heart rate 81, respiratory rate 18, oxygen saturation 94% on room air, blood pressure 148/56. General: Ms. Vaca is a thin, elderly white woman, who is sitting in her chair with her lower extremities down. She is frail appearing. She is in no acute distress. She appears well. HEENT: Visual tian are grossly intact. Pupils are equally round and reactive to light and extraocular movements are intact. The sclerae is without icterus. Hearing is grossly intact. Oral mucous membranes are moist. There are no lesions. The pharynx is clear. There appears to be cobblestoning in the posterior pharynx. Neck with full range of motion. Thyroid not palpable. Trachea is at midline. There is no lymphadenopathy. Cardiovascular : Regular rate and rhythm with S1, S2 present. There are no murmurs, rubs, or gallops. There is no JVD. Respiratory: The thorax is malformed, the patient has kyphosis and anterior chest wall deformity. She has symmetrical chest expansion without use of accessory muscles. The lungs are clear to auscultation. There are no rhonchi, wheezes, or rubs. Abdomen: Flat and thin. Bowel sounds in all quadrants. The abdomen is soft and nontender to palpation. Extremities: Skin is warm and smooth bilaterally. There is no clubbing, cyanosis, or edema. The right hip wound closure is nonerythematous without drainage. Rosario in place. Dressing is clean, dry and intact. Radial and pedal pulses are palpable. Neuro: The patient is awake. She is alert and oriented x3. She is able to move all of her extremities. Sensation intact distally in upper and lower extremities. TIARRA BAKER, GERMAN [id number]/[facility] #: [id number]/CPS #: [id number] [facility]Anne
--- NOTE | 2018-11-22 10:27 | DS ---
ADDENDUM: Ms. Vaca is stable for discharge. PHYSICAL EXAMINATION: Vital Signs: Temperature 97.7 oral, heart rate 81, respiratory rate 18, oxygen saturation 94% on room air, blood pressure 148/56. General: Ms. Vaca is a thin, elderly white woman, who is sitting in her chair with her lower extremities down. She is frail appearing. She is in no acute distress. She appears well. HEENT: Visual tian are grossly intact. Pupils are equally round and reactive to light and extraocular movements are intact. The sclerae is without icterus. Hearing is grossly intact. Oral mucous membranes are moist. There are no lesions. The pharynx is clear. There appears to be cobblestoning in the posterior pharynx. Neck with full range of motion. Thyroid not palpable. Trachea is at midline. There is no lymphadenopathy. Cardiovascular : Regular rate and rhythm with S1, S2 present. There are no murmurs, rubs, or gallops. There is no JVD. Respiratory: The thorax is malformed, the patient has kyphosis and anterior chest wall deformity. She has symmetrical chest expansion without use of accessory muscles. The lungs are clear to auscultation. There are no rhonchi, wheezes, or rubs. Abdomen: Flat and thin. Bowel sounds in all quadrants. The abdomen is soft and nontender to palpation. Extremities: Skin is warm and smooth bilaterally. There is no clubbing, cyanosis, or edema. The right hip wound closure is nonerythematous without drainage. Rosario in place. Dressing is clean, dry and intact. Radial and pedal pulses are palpable. Neuro: The patient is awake. She is alert and oriented x3. She is able to move all of her extremities. Sensation intact distally in upper and lower extremities. GERMAN CHANG [id number]/[facility] #: [id number] MTDD
== END 2018-11-22 11:10 | DRG 481 ==
LOC: ED 16:06 → MEDTELE 22:17 → SSU 11-20 11:43
PROVIDERS: ADMIT Internal Medicine; ATTEND Internal Medicine
PROC: 0QH Lower Bones, Insertion (ICD-10-PCS; principal; 2018-11-19 13:45)
DX: S72.001A Fracture of unspecified part of neck of right femur, initial encounter for closed fracture (principal); D62 Acute posthemorrhagic anemia; I12.9 Hypertensive chronic kidney disease with stage 1 through stage 4 chronic kidney disease, or unspecified chronic kidney disease; J44.9 Chronic obstructive pulmonary disease, unspecified; K59.09 Other constipation; M40.209 Unspecified kyphosis, site unspecified; M17.0 Bilateral primary osteoarthritis of knee; M81.0 Age-related osteoporosis without current pathological fracture; M41.9 Scoliosis, unspecified; M21.70 Unequal limb length (acquired), unspecified site; H40.9 Unspecified glaucoma; G43.909 Migraine, unspecified, not intractable, without status migrainosus; F41.9 Anxiety disorder, unspecified; F32.9 Major depressive disorder, single episode, unspecified; N18.3 Chronic kidney disease, stage 3 (moderate); Z87.442 Personal history of urinary calculi; Z86.12 Personal history of poliomyelitis; Z82.49 Family history of ischemic heart disease and other diseases of the circulatory system; Z82.62 Family history of osteoporosis; Z72.89 Other problems related to lifestyle; Z87.891 Personal history of nicotine dependence; Z86.19 Personal history of other infectious and parasitic diseases; Z66 Do not resuscitate; M85.88 Other specified disorders of bone density and structure, other site; G89.29 Other chronic pain; W17.89XA Other fall from one level to another, initial encounter; Y92.009 Unspecified place in unspecified non-institutional (private) residence as the place of occurrence of the external cause; M54.9 Dorsalgia, unspecified; I27.20 Pulmonary hypertension, unspecified
CPT/HCPCS: 36415; 71045; 76000; 80048; 80053; 81003; 83605; 83880; 84443; 85014; 85018; 85025; 85610; 85730; 86850; 86900; 86901; 87641; 93005; 94640; 99285; A9270-GY; C1713; C1776; G8978-GP-CK; G8979-GP-CI; G8987-GO-CL; G8988-GO-CI; J0330; J0360; J0690; J1644; J1650; J1885; J2250; J2405; J2704; J3010